=== PATIENT | male | born 1940 | race Caucasian/White ===

== ENCOUNTER → 2021-08-04 | Outpatient (CLI) | LOC: CVS 14:07 | PROVIDERS: ATTEND Internal Medicine | DX: D64.9 Anemia, unspecified (principal); D63.8 Anemia in other chronic diseases classified elsewhere | CPT/HCPCS: 82274 ==

== ENCOUNTER 2021-08-17 15:50 | Emergency (ER) | payer MEDICARE ==
--- NOTE | 2021-08-17 15:58 | ED General ---
General Stated Complaint: WEAKNESS Source of Information: Patient Exam Limitations: No Limitations History of Present Illness Date Seen by Provider: Aug 17, 2021 Time Seen by Provider: 15:56 Initial Comments To ER by EMS from [facility] where he resides with reports of general weakness nausea onset today. He received a booster vaccine for Covid yesterday. He had outpatient labs done at [facility] today at 2:20 PM showing a normal sodium potassium anion gap glucose. His creatinine was a little elevated at 1.6 his GFR a little low at 43. His baseline is about 50. Remainder of the chemistry panel is within normal limits. The CBC shows a hemoglobin of 8.4 which is stable for him, platelets of 120 which is also stable for him. Timing/Duration: 1 Day Severity: Moderate Associated Systoms: Nausea/Vomiting, Weakness Allergies and Home Medications Allergies Coded Allergies: No Known Drug Allergies (Unverified , 08/17/21) Patient Home Medication List Home Medication List Reviewed: Yes Cefuroxime Axetil (Cefuroxime) 250 Mg Tablet, 250 MG PO BID Prescribed by: SURESH CARTER on 08/17/211739 Review of Systems Review of Systems Constitutional: see HPI, weakness EENTM: see HPI Respiratory: no symptoms reported Cardiovascular: no symptoms reported Genitourinary: no symptoms reported Musculoskeletal: no symptoms reported Skin: no symptoms reported Psychiatric/Neurological: No Symptoms Reported Hematologic/Lymphatic: No Symptoms Reported Immunological/Allergic: no symptoms reported Physical Exam Vital Signs Vital Signs - First Documented Capillary Refill : Height, Weight, BMI Height: '" Weight: lbs. oz. kg; BMI Method: General Appearance: No Apparent Distress, WD/WN Eyes: Bilateral Eye Normal Inspection, Bilateral Eye PERRL, Bilateral Eye EOMI Neck: Full Range of Motion, Normal Inspection Respiratory: No Accessory Muscle Use, No Respiratory Distress Cardiovascular: Regular Rate, Rhythm, Normal Peripheral Pulses Gastrointestinal: Normal Bowel Sounds, Non Tender, Soft Extremity: Normal Capillary Refill, Normal Inspection Neurologic/Psychiatric: Alert, Disoriented (History of dementia) Skin: Normal Color, Warm/Dry Progress/Results/Core Measures Suspected Sepsis SIRS Temperature: Pulse: Respiratory Rate: Blood Pressure / Mean: Results/Orders Lab Results Laboratory Tests Test 08/17/21 15:55 08/17/21 17:05 Range/Units Magnesium Level 2.1 1.6-2.4 MG/DL Total Creatine Kinase 61 30-200 U/L Troponin I < 0.028 <0.028 NG/ML Urine Color YELLOW Urine Clarity SL CLOUDY Urine pH 6.0 5-9 Urine Specific [place] 1.025 H 1.016-1.022 Urine Protein TRACE H NEGATIVE Urine Glucose (UA) NEGATIVE NEGATIVE Urine Ketones NEGATIVE NEGATIVE Urine Nitrite POSITIVE H NEGATIVE Urine Bilirubin NEGATIVE NEGATIVE Urine Urobilinogen 0.2 < = 1.0 MG/DL Urine Leukocyte Esterase NEGATIVE NEGATIVE Urine RBC (Auto) 1+ H NEGATIVE Urine RBC RARE /HPF Urine WBC 0-2 /HPF Urine Crystals NONE /LPF Urine Bacteria LARGE H /HPF Urine Casts NONE /LPF Urine Mucus NEGATIVE /LPF Urine Culture Indicated YES My Orders Orders - SURESH CARTER APRN Ed Iv/Invasive Line Start (08/17/21 15:54) Ns Iv 500 Ml (Sodium Chloride 0.9%) (08/17/21 16:00) Ondansetron Injection (Zofran Injectio (08/17/21 16:00) Acetaminophen Tablet/Caplet (Tylenol T (08/17/21 16:00) Troponin I (08/17/21 15:58) Ekg Tracing (08/17/21 15:58) Creatine Kinase (08/17/21 15:58) Ua Culture If Indicated (08/17/21 16:11) Magnesium (08/17/21 17:00) Urine Culture (08/17/21 17:05) Ceftriaxone 1 Gm Pre-Mix (Rocephin 1 Gm (08/17/21 17:45) Medications Given in ED Current Medications Medications Dose Ordered Sig/Avel Route Start Time Stop Time Status Last Admin Dose Admin Acetaminophen 650 mg ONCE ONCE PO 08/17/21 16:00 08/17/21 16:01 DC 08/17/21 16:04 650 MG Ondansetron HCl 8 mg ONCE ONCE IVP 08/17/21 16:00 08/17/21 16:01 DC 08/17/21 16:04 8 MG Vital Signs/I&O 08/17/21 08/17/21 15:55 15:55 Temp 37.7 Pulse 64 Resp 18 B/P (MAP) 160/94 (116) Pulse Ox 97 O2 Delivery Room Air Room Air Capillary Refill : Departure Impression Primary Impression: UTI (urinary tract infection) 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 Decision time for Depature: 17:39 Referrals: DAMIÁN MAGANA MD (PCP/Family) Primary Care Physician Patient Instructions: Urinary Tract Infection, Adult ED Add. Discharge Instructions: 1. Antibiotic as directed. Return to ER for any concerns. Follow-up with his doctor next week. Scripts Cefuroxime Axetil (Cefuroxime) 250 Mg Tablet 250 MG PO BID, #14 TAB Prov: SURESH CARTER APRN 08/17/21 SURESH CARTER APRN Aug 17, 2021 15:58
[2021-08-17] MEDS ORDERED: ONDANSETRON 4 MG/2 ML (SDV) Z0FRAN IVP ONE (16:00)
[2021-08-17] MEDS ORDERED: NS IV 500 ML 500 ML IV SCH (16:00)
[2021-08-17] MEDS ORDERED: ACETAMINOPHEN 325 MG TABLET PO ONE (16:00)
[2021-08-17 16:21] LABS: CREATINE KINASE 61 U/L (30-200)
[2021-08-17 17:26] LABS: BILIRUBIN,URINE NEGATIVE (NEGATIVE); CLARITY,URINE SL CLOUDY; COLOR,URINE YELLOW; GLUCOSE, URINE (UA) NEGATIVE (NEGATIVE); KETONES,URINE NEGATIVE (NEGATIVE); LEUKOCYTE ESTERASE ,URINE NEGATIVE (NEGATIVE); NITRITE,URINE POSITIVE (NEGATIVE); PROTEIN,URINE TRACE (NEGATIVE)
[2021-08-17 17:36] LABS: BACTERIA,URINE LARGE /HPF; RBC,URINE RARE /HPF; WBC,URINE 0-2 /HPF
[2021-08-17] MEDS ORDERED: CEFU250T80 PO (17:40)
[2021-08-17] MEDS ORDERED: cefTRIAXone 1 GM PRE-MIX 50 ML IV ONE (17:45)
[2021-08-17 18:33] VITALS: BP 160/94
== END 2021-08-17 18:34 | disposition home or self-care (01) ==
LOC: EDUNIT# 15:50 → ER 15:53
DX: N39.0 Urinary tract infection, site not specified (principal); T88.1XXA Other complications following immunization, not elsewhere classified, initial encounter
CPT/HCPCS: 36415; 81000; 82550; 83735; 84484; 87077; 87088; 87186; 93005

== ENCOUNTER → 2021-09-04 | Outpatient (CLI) | payer MEDICARE ==
[~2021-09-04] MED LIST: CEFU250T80 PO
[2021-09-04 09:24] LABS: BASOPHILS % (AUTO) 1 % (0-10); EOSINOPHILS # (AUTO) 0.2 10^3/uL (0.0-0.3); EOSINOPHILS % (AUTO) 4 % (0-10); HEMATOCRIT 32 % (40-54); HEMOGLOBIN 9.9 g/dL (13.3-17.7); LYMPHOCYTES % (AUTO) 24 % (12-44); MEAN CORPUSCULAR HEMOGLOBIN 26 pg (25-34); MEAN CORPUSCULAR HGB CONC 31 g/dL (32-36); MEAN CORPUSCULAR VOLUME 86 fL (80-99); MEAN PLATELET VOLUME 10.2 fL (9.0-12.2); MONOCYTES # (AUTO) 0.3 10^3/uL (0.0-1.0); MONOCYTES % (AUTO) 6 % (0-12); NEUTROPHILS # (AUTO) 2.7 10^3/uL (1.8-7.8); NEUTROPHILS % (AUTO) 66 % (42-75); PLATELET COUNT 143 10^3/uL (130-400); WHITE BLOOD COUNT 4.2 10^3/uL (4.3-11.0)
[2021-09-04 09:46] LABS: ACANTHOCYTES MODERATE; ANISOCYTOSIS MODERATE; BAND NEUTROPHILS 0 %; BASOPHILS % (MANUAL) 1 %; EOSINOPHILS % (MANUAL) 2 %; LYMPHOCYTES % (MANUAL) 20 %; MONOCYTES % (MANUAL) 4 %; NEUTROPHILS % (MANUAL) 69 %; POIKILOCYTOSIS MODERATE
== END ==
LOC: LAB 09:01
PROVIDERS: ATTEND Internal Medicine
DX: Z01.89 Encounter for other specified special examinations (principal)
CPT/HCPCS: 36415; 85007; 85027

== ENCOUNTER 2021-09-12 11:23 | Outpatient (CLI) | payer MEDICARE ==
[~2021-09-12] VITALS: Ht 183 cm; Wt 77.7 kg
[2021-09-13] MEDS ORDERED: FERR325T24 PO (14:37)
[2021-09-13] MEDS ORDERED: ONDN4T PO (14:37)
[2021-09-13] MEDS ORDERED: POLY17PO6 PO ×2 (14:37)
[2021-09-13] MEDS ORDERED: ACHD5005 PO (14:37)
[2021-09-13] MEDS ORDERED: PANT40TA2 PO (14:37)
[2021-09-13] MEDS ORDERED: MEMA10TA2 PO (14:37)
[2021-09-13] MEDS ORDERED: DORZ10DR27 OP (14:37)
[2021-09-13] MEDS ORDERED: SUCR1TAB36 PO (14:37)
[2021-09-13] MEDS ORDERED: LORA10CA PO (14:37)
[2021-09-13] MEDS ORDERED: TRIA15CR TP (14:37)
[2021-09-13] MEDS ORDERED: CHOL100048 PO (14:37)
[2021-09-13] MEDS ORDERED: RIVA15TA PO (14:37)
[2021-09-13] MEDS ORDERED: LATA7.5D OP (14:37)
[2021-09-13] MEDS ORDERED: SERT100T PO (14:37)
== END 2021-09-13 14:56 ==
LOC: PREOP 11:23
PROVIDERS: ATTEND Internal Medicine
DX: Z01.818 Encounter for other preprocedural examination (principal)

== ENCOUNTER 2021-09-14 10:00 | Day surgery (SDC) | payer MEDICARE ==
--- NOTE | 2021-09-12 17:25 | HISTORY AND PHYSICAL ---
DATE OF SERVICE: EGD HISTORY AND PHYSICAL HISTORY: The patient is an 81-year-old white male referred by Dr. Lara for panendoscopy due to history of occult positive blood in the stool and anemia. The patient carries a diagnosis of vascular dementia as well and could give little history, was not sure why he was here. We received information from Dr. Lara's office with blood work including a chemistry panel and CBC from 08/17/2021. At that time, his hemoglobin was 8.4 with an MCV of 84. White count was slightly depressed at 3900, platelet count was slightly low at 120,000. He was occult positive and appeared to have stable stage III chronic renal disease with an estimated GFR of 43 and a creatinine of 1.4 with remainder of his chemistry panel being normal. From a history standpoint after noting some pain in the left upper quadrant to palpation and no obvious evidence for splenomegaly, the patient reports he has been having some left upper quadrant discomfort, but he is not sure for how long. He does not give history of melena or bright red blood per rectum, but his dementia history is suspect. He thinks that his clothes are fitting about the same, does not think that he has lost weight, but he is not sure. He is not aware of any past history for peptic ulcer disease, but he is on Xarelto. He does not remember whether or not he has ever had an EGD or colonoscopy in the past. Review of his electronic medical record, he has no history of GI tract procedures done at [facility]. He had recently been treated for urinary tract infection secondary to Escherichia coli, resistant to trimethoprim sulfa and only intermittently sensitive to cefazolin, but sensitive to all the other antibiotics with gram-negative coverage. In questioning, the patient does report his stools have been a little bit dark. PAST MEDICAL HISTORY: Vascular dementia. Significant for chronic atrial fibrillation and psoriasis. MEDICATIONS: Include Xarelto 20 mg daily, Claritin 10 mg daily, vitamin D 1000 units daily, p.r.n. MiraLax, Zoloft 100 mg daily. The patient does not recall any past surgeries. FAMILY HISTORY: The patient denies any family history for GI tract malignancy including colon cancer. PHYSICAL EXAMINATION: GENERAL: Reveals a thin, pleasant white male, who did not appear to be in acute distress, although he did appear pallorous. VITAL SIGNS: Blood pressure was 120/82. HEENT: Other than pallor unremarkable. Sclerae nonicteric. CHEST: Clear to auscultation. CARDIOVASCULAR: Reveals a regular rate and rhythm without murmur, S3 or S4. ABDOMEN: Soft, supple. There is some left upper quadrant discomfort to palpation without rebound or guarding. No mass or organomegaly is noted. EXTREMITIES: Reveal no cyanosis, clubbing or edema. ASSESSMENT AND PLAN: For further investigation of moderate anemia and otherwise mild pancytopenia with occult positive blood in the stool. The patient was advised to hold his Xarelto starting today. This notes were written out for the [facility] and we will plan on EGD evaluation first. If unremarkable, we will then bring the patient back for colonoscopy at a later date which maybe more difficult to achieve adequate prep due to underlying dementia. We will need to coordinate this with staff at [facility]. I thank you for the referral of this pleasant gentleman. Job ID: [id number] DocumentID: [id number] Dictated Date: 09/12/2021 17:00:02 Mangle Operator Garments Date: 09/12/2021 17:25:15 Dictated By: NELSON QUINTANA MD [facility]
[~2021-09-14] VITALS: Ht 183 cm; Wt 77.7 kg
[2021-09-14] VITALS (10 sets, daily range): BP systolic 133–188; BP diastolic 67–93
[~2021-09-14 10:00] MED LIST changes: +ACHD5005 PO; +CHOL100048 PO; +DORZ10DR27 OP; +FERR325T24 PO; +LATA7.5D OP; +LORA10CA PO; +MEMA10TA2 PO; +ONDN4T PO; +PANT40TA2 PO; +POLY17PO6 PO; +RIVA15TA PO; +SERT100T PO; +SUCR1TAB36 PO; +TRIA15CR TP
[2021-09-14] MEDS ORDERED: LACTATED RINGERS 1,000 ML IV STA (10:08)
[2021-09-14] MEDS ORDERED: LACTATED RINGERS 1,000 ML IV ONE (10:10)
[2021-09-14] MEDS ORDERED: LIDOCAINE JELLY 2% 6 ML SYRINGE MM PRN (10:15)
[2021-09-14] MEDS ORDERED: HURRICAINE EXT TUBE (BENZOCAINE) XX PRN (10:15)
[2021-09-14] MEDS ORDERED: D5 LR IV SOLUTION 1,000 ML IV SCH (10:30)
[2021-09-14] MEDS ORDERED: LACTATED RINGERS 1,000 ML IV SCH (11:00)
--- NOTE | 2021-09-14 11:24 | Pre-Op Note & Conscious Sedat ---
Pre-Operative Progress Note H&P Reviewed The H&P was reviewed, patient examined and no changes noted. Date H&P Reviewed: Sep 14, 2021 Time H&P Reviewed: 11:23 Conscious Sedation Pre-Proced ASA Score 2 For ASA 3 and 4: Consider anesthesia and medical clearance. Also, for patients with a history of failed moderate sedation consider anesthesia. Airway Lungs Heart ASA score ASA 1: a normal healthy patient ASA 2: a patient with a mild systemic disease (mid diabetes, controlled hypertension, obesity ASA 3: a patient with a severe systemic disease that limits activity (angina, COPD, prior Myocardial infarction) ASA 4: a patient with an incapacitating disease that is a constant threat to life (CHF, renal failure) ASA 5: a moribund patient not expected to survive 24 hrs. (ruptured aneurysm) ASA 6: a declared brain- patient whose organs are being harvested. For emergent operations, add the letter E after the classification Mallampati Classification Grade 1 Sedation Plan Analgesia, Amnesia, Plan communicated to team members, Discussed options with patient/fam, Discussed risks with patient/fam The patient is an appropriate candidate to undergo the planned procedure, sedation, and anesthesia. The patient immediately re-assessed prior to indication. NELSON QUINTANA MD Sep 14, 2021 11:23
[2021-09-14] MEDS ORDERED: MIDAZOLAM 2 MG/2 ML (VERSED) VIAL ONE (11:29)
[2021-09-14] MEDS ORDERED: PROPOFOL INJECTION 50 ML IV ONE (11:29)
--- NOTE | 2021-09-14 12:23 | Anesthesia-General Post-Op ---
MAC Patient Condition Mental Status/LOC: Same as Preop Cardiovascular: Satisfactory Nausea/Vomiting: Absent Respiratory: Satisfactory Pain: Controlled Complications: Absent Post Op Complications Complications None Follow Up Care/Instructions Patient Instructions None needed. Anesthesiology Discharge Order Discharge Order Patient is doing well, no complaints, stable vital signs, no apparent adverse anesthesia problems. No complications reported per nursing. ROBLES WASHINGTON CRNA Sep 14, 2021 12:23
--- NOTE | 2021-09-14 16:58 | OPERATIVE REPORT ---
DATE OF SERVICE: EGD SUMMARY EGD is performed for evaluation of anemia with occult positive blood in the stool. DESCRIPTION OF PROCEDURE: The patient was placed in the left lateral decubitus position. The endoscope was inserted in the oral cavity and under direct visualization, esophagus was intubated. Endoscope was passed down the esophagus through stomach and second portion of the duodenum. Careful inspection was made as the endoscope was withdrawn. FINDINGS: The posterior pharynx, arytenoid aperture, epiglottis and true and false vocal folds were unremarkable. The proximal and mid esophagus were unremarkable. There is some mild erythema without erosion or ulceration noted at the Z-line with no evidence to suggest Mensah's change. No strictures. The cardia, fundus, antrum, pylorus, pyloric channel, duodenal bulb and second portion of duodenum were unremarkable. There is no evidence to suggest hiatal hernia. There was some erythema noted at the Z-line without evidence for ulceration or erosion. No evidence for blood in the upper GI tract. Very questionable source for this patient's occult positive blood in the stool. We will discuss options considering advanced dementia and advanced age including colonoscopy with Dr. Lara before making more formal recommendations. I thank you for the referral of this pleasant gentleman. Job ID: [id number] DocumentID: [id number] Dictated Date: 09/14/2021 12:11:48 Caramel Cutter Hand Date: 09/14/2021 16:58:12 Dictated By: NELSON QUINTANA MD [facility]
== END 2021-09-14 12:50 | disposition home or self-care (01) ==
LOC: ENDO 10:00
PROVIDERS: ATTEND Internal Medicine
DX: R19.5 Other fecal abnormalities (principal); D64.9 Anemia, unspecified; I25.10 Atherosclerotic heart disease of native coronary artery without angina pectoris; D61.818 Other pancytopenia; I48.91 Unspecified atrial fibrillation; K21.9 Gastro-esophageal reflux disease without esophagitis; F32.A Depression, unspecified; Z79.899 Other long term (current) drug therapy; Z95.1 Presence of aortocoronary bypass graft

== ENCOUNTER 2021-12-12 20:16 | Emergency (ER) | payer MEDICARE ==
[~2021-12-12] VITALS: Ht 191 cm; Wt 77.5 kg
[2021-12-12 20:30] VITALS: BP 202/119
--- NOTE | 2021-12-12 20:52 | ED General ---
General Chief Complaint: Altered Mental Status Stated Complaint: AMS Source of Information: Other (daughter) Exam Limitations: Other (mental capacity) (JONATHAN GARCIA MED STUDENT) History of Present Illness Date Seen by Provider: Dec 12, 2021 Time Seen by Provider: 20:38 Initial Comments Patient is an 81 year old male with pmh significant for dementia, major depressive disorder, and chronic atrial fibrillation who presents to the ED with his daughter from via [facility] assisted living with complaints of acutely worsening confusion x 4 days. Daughter reports that patient has been acting more confused than his baseline, especially over the last 24 hours. Reports he's not recognizing people he normally does and has been somewhat combative/agitated according to the staff at assisted living. Has been eating and drinking normally. Voiding and stooling normally per daughters report. No recent sick contact. No known falls, fevers/chills, cough, or chest pain reports from patient according to daughter. He is covid vaccinated and boosted per daughter. Patient is altered and unable to contribute history during exam. Timing/Duration: 3-4 Days Severity: Mild, Moderate Associated Systoms: Denies Symptoms; No Chest Pain, No Cough, No Fever/Chills, No Loss of Appetite, No Rash (JONATHAN GARCIA MED STUDENT) Initial Comments 81 yo male with a history of dementia, depression - recently started on Rexulti within the last week, progressive behavior change and worsening aggression over the last week as well, specifically worse the last 24 hours. Dose was increased to 1mg this morning, Daughter (who is with him - geochemist in [place]) states that he has been entering other people's rooms in the senior care, climbing into bed with other occupants, belligerent and aggressive with staff and that is not like him at all. He is normally alert and oriented to self and family members, not date/time. And even that is worse the last 24hours. On chronic anticoagulation for afib. No reported falls/head trauma. No fevers. eating and drinking ok. Has had a UTI in the past. He cannot really contribute to HPI, ROS/history due to his dementia currently. (RAUL GARCIA MD) Allergies and Home Medications Allergies Coded Allergies: No Known Drug Allergies (Unverified , 08/17/21) Patient Home Medication List Home Medication List Reviewed: Yes (RAUL GARCIA MD) Cholecalciferol (Vitamin D3) (Vitamin D3) 25 Mcg Capsule, 25 MCG PO DAILY, (Reported) Entered as Reported by: SAADIA TIWARI on 09/13/211436 Dorzolamide HCl/Pf (Dorzolamide 2% Eye Drop) 10 Ml Drops, 1 DROP OP DAILY, (Reported) Entered as Reported by: SAADIA TIWARI on 09/13/211436 Ferrous Sulfate (Ferosul) 325 Mg Tablet, 325 MG PO BID, (Reported) Entered as Reported by: SAADIA TIWARI on 09/13/211436 Hydrocodone Bit/Acetaminophen (HYDROcodone/APAP 5 MG/325 MG TAB) 1 Tab Tab, 0.5 TAB PO Q6H PRN for PAIN-SEE DOSE INSTRUCTIONS, (Reported) Entered as Reported by: SAADIA TIWARI on 09/13/211436 Latanoprost/Pf (Latanoprost 0.005% Eye Drop) 7.5 Ml Drops, 1 DROP OP HS, (Reported) Entered as Reported by: SAADIA TIWARI on 09/13/211436 Loratadine (Claritin) 10 Mg Capsule, 10 MG PO DAILY, (Reported) Entered as Reported by: SAADIA TIWARI on 09/13/211436 Memantine HCl (Namenda) 10 Mg Tablet, 10 MG PO BID, (Reported) Entered as Reported by: SAADIA TIWARI on 09/13/211436 Ondansetron HCl (Zofran) 4 Mg Tab, 4 MG PO Q6H PRN for NAUSEA/VOMITING, (Reported) Entered as Reported by: SAADIA TIWARI on 09/13/211436 Pantoprazole Sodium (Protonix) 40 Mg Tablet.dr, 40 MG PO DAILY, (Reported) Entered as Reported by: SAADIA TIWARI on 09/13/211436 Polyethylene Glycol 3350 (Miralax) 17 Gm Powd.pack, 17 GM PO DAILY, (Reported) Entered as Reported by: SAADIA TIWARI on 09/13/211436 Polyethylene Glycol 3350 (Miralax) 17 Gm Powd.pack, 17 GM PO PRN, (Reported) Entered as Reported by: SAADIA TIWARI on 09/13/211436 Rivaroxaban (Xarelto) 15 Mg Tablet, 15 MG PO DAILY, (Reported) Entered as Reported by: SAADIA TIWARI on 09/13/211436 Sertraline HCl (Zoloft) 100 Mg Tablet, 100 MG PO HS, (Reported) Entered as Reported by: SAADIA TIWARI on 09/13/211436 Triamcinolone Acetonide (Triamcinolone Acetonide 0.5% Cream) 15 Gm Cream..g., 15 GM TP BID, (Reported) Entered as Reported by: SAADIA TIWARI on 09/13/211436 Review of Systems Review of Systems Constitutional: no symptoms reported; No chills, No fever EENTM: see HPI; No blurred vision, No double vision Respiratory: no symptoms reported; No cough, No short of breath Cardiovascular: no symptoms reported; No chest pain, No palpitations Gastrointestinal: No abdominal pain, No diarrhea, No vomiting Genitourinary: no symptoms reported; No discharge, No dysuria Musculoskeletal: no symptoms reported; No back pain, No joint pain Skin: no symptoms reported; No change in color, No change in hair/nails Psychiatric/Neurological: Depressed; Denies Headache, Denies Weakness Hematologic/Lymphatic: Easy Bleeding, Easy Bruising Immunological/Allergic: no symptoms reported (JONATHAN GARCIA [employer] STUDENT) Past Cjddagg-Guxbbm-Fihugy Hx Patient Social History Tobacco Use?: No Smoking Status: Former Smoker (quit in 1979 20 pack year history) Smokeless Tobacco Frequency: Never a User Use of E-Cig and/or Vaping dev: No Use of E-Cig and/or Vaping Сергей: Never a User Substance use?: No Substance frequency: Rarely Alcohol Use?: No (JONATHAN GARCIA [employer] STUDENT) Immunizations Up To Date Tetanus Booster (TDap): Unknown Influenza Vaccine Up-to-Date: Yes; Up-to-Date First/Initial COVID19 Vaccinat: YES Second COVID19 Vaccination Josh: YES Third COVID19 Vaccination Date: YES (JONATHAN GARCIA [employer] STUDENT) Seasonal Allergies Seasonal Allergies: Yes (JONATHAN GARCIA [employer] RADHA) Past Medical History Surgeries: No (UNSURE) Respiratory: No Cardiac: Yes Atrial Fibrillation Neurological: Yes Dementia Genitourinary: No Musculoskeletal: No Endocrine: No HEENT: No Cancer: No Psychosocial: Yes Depression Integumentary: Yes Psoriasis Blood Disorders: Yes (ANEMIA) (JONATHAN GARCIA [employer] STUDENT) Physical Exam Vital Signs Vital Signs - First Documented 12/12/21 20:30 Temp 36.5 Pulse 75 Resp 20 B/P (MAP) 202/119 (146) Pulse Ox 99 O2 Delivery Room Air (RAUL GARCIA MD) Vital Signs Capillary Refill : (JONATHAN GARCIA [employer] STUDENT) Height, Weight, BMI Height: '" Weight: lbs. oz. kg; 23.20 BMI Method: General Appearance: No Apparent Distress, WD/WN Eyes: Bilateral Eye Normal Inspection, Bilateral Eye PERRL, Bilateral Eye EOMI HEENT: PERRL/EOMI, Moist Mucous Membranes Neck: Full Range of Motion, Non Tender Respiratory: Lungs Clear, Normal Breath Sounds, No Accessory Muscle Use Cardiovascular: Normal Peripheral Pulses, Irregularly Irregular Gastrointestinal: Normal Bowel Sounds, Soft; No Distended Rectal: Deferred Back: Normal Inspection, No Vertebral Tenderness Extremity: Normal Capillary Refill, Non Tender, No Calf Tenderness, Other (nonpitting edema BLE) Neurologic/Psychiatric: Alert, Disoriented (to person, place, time, and situation) Skin: Normal Color, Warm/Dry, Ecchymosis (left hand dorsal aspect) Lymphatic: No Adenopathy (Head and Neck) (JONATHAN GARCIA [employer] STUDENT) General Appearance: No Apparent Distress, WD/WN HEENT: PERRL/EOMI Neck: Normal Inspection Respiratory: Lungs Clear, Normal Breath Sounds, No Accessory Muscle Use Cardiovascular: Normal Peripheral Pulses, Irregularly Irregular Gastrointestinal: Non Tender, Soft Extremity: Normal Capillary Refill, Non Tender, No Calf Tenderness, No Pedal Edema Neurologic/Psychiatric: Alert, Disoriented (to person, place, time, and situation), Other (pleasant affect. smiles. agreeable. not aggressive currently.) Skin: Normal Color, Warm/Dry, Other (no signs of trauma noted) (RAUL GARCIA MD) Progress/Results/Core Measures Suspected Sepsis SIRS Temperature: Pulse: Respiratory Rate: Blood Pressure / Mean: (JONATHAN GARCIA [employer] STUDENT) Results/Orders Lab Results Laboratory Tests Test 12/12/21 20:55 12/12/21 22:11 Range/Units White Blood Count 4.3 4.3-11.0 10^3/uL Red Blood Count 3.49 L 4.30-5.52 10^6/uL Hemoglobin 9.9 L 13.3-17.7 g/dL Hematocrit 31 L 40-54 % Mean Corpuscular Volume 89 80-99 fL Mean Corpuscular Hemoglobin 28 25-34 pg Mean Corpuscular Hemoglobin Concent 32 32-36 g/dL Red Cell Distribution Width 15.5 H 10.0-14.5 % Platelet Count 105 L 130-400 10^3/uL Mean Platelet Volume 11.1 9.0-12.2 fL Immature Granulocyte % (Auto) 0 % Neutrophils (%) (Auto) 65 42-75 % Lymphocytes (%) (Auto) 21 12-44 % Monocytes (%) (Auto) 9 0-12 % Eosinophils (%) (Auto) 3 0-10 % Basophils (%) (Auto) 1 0-10 % Neutrophils # (Auto) 2.8 1.8-7.8 10^3/uL Lymphocytes # (Auto) 0.9 L 1.0-4.0 10^3/uL Monocytes # (Auto) 0.4 0.0-1.0 10^3/uL Eosinophils # (Auto) 0.1 0.0-0.3 10^3/uL Basophils # (Auto) 0.0 0.0-0.1 10^3/uL Immature Granulocyte # (Auto) 0.0 0.0-0.1 10^3/uL Percent Immature Platelet Fraction 3.1 0.0-7.6 % Sodium Level 140 135-145 MMOL/L Potassium Level 3.7 3.6-5.0 MMOL/L Chloride Level 106 98-107 MMOL/L Carbon Dioxide Level 22 21-32 MMOL/L Anion Gap 12 5-14 MMOL/L Blood Urea Nitrogen 20 H 7-18 MG/DL Creatinine 1.57 H 0.60-1.30 MG/DL Estimat Glomerular Filtration Rate 44 BUN/Creatinine Ratio 13 Glucose Level 88 70-105 MG/DL Calcium Level 9.4 8.5-10.1 MG/DL Corrected Calcium 9.5 8.5-10.1 MG/DL Total Bilirubin 0.7 0.1-1.0 MG/DL Aspartate Amino Transf (AST/SGOT) 14 5-34 U/L Alanine Aminotransferase (ALT/SGPT) 8 0-55 U/L Alkaline Phosphatase 45 40-136 U/L Total Protein 6.7 6.4-8.2 GM/DL Albumin 3.9 3.2-4.5 GM/DL Urine Color YELLOW Urine Clarity CLEAR Urine pH 6.0 5-9 Urine Specific [place] >=1.030 1.016-1.022 Urine Protein TRACE H NEGATIVE Urine Glucose (UA) NEGATIVE NEGATIVE Urine Ketones NEGATIVE NEGATIVE Urine Nitrite NEGATIVE NEGATIVE Urine Bilirubin NEGATIVE NEGATIVE Urine Urobilinogen 1.0 < = 1.0 MG/DL Urine Leukocyte Esterase NEGATIVE NEGATIVE Urine RBC (Auto) NEGATIVE NEGATIVE Urine RBC NONE /HPF Urine WBC NONE /HPF Urine Squamous Epithelial Cells RARE /HPF Urine Crystals NONE /LPF Urine Bacteria NEGATIVE /HPF Urine Casts NONE /LPF Urine Mucus SMALL H /LPF Urine Culture Indicated NO (RAUL GARCIA MD) My Orders Orders - RAUL GARCIA MD Ed Iv/Invasive Line Start (12/12/21 21:01) Cbc With Automated Diff (12/12/21 21:01) Comprehensive Metabolic Panel (12/12/21 21:01) Ua Culture If Indicated (12/12/21 21:01) Ct Head Wo (12/12/21 21:01) (RAUL GARCIA MD) Vital Signs/I&O 12/12/21 20:30 Temp 36.5 Pulse 75 Resp 20 B/P (MAP) 202/119 (146) Pulse Ox 99 O2 Delivery Room Air (RAUL GARCIA MD) Vital Signs/I&O Capillary Refill : (JONATHAN GARCIA MED STUDENT) Progress Note : Time: 22:06 Progress Note Labs reviewed and Hgb is 9 - stable currently. Creat is up at 1.5 with no priors in the record. i made the daughter aware. CT head is unremarkable for anything acute. He's a little hypertensive with no focal neuro findings. Trying to obtain a urine - but per the daughter, if we are unsuccessful, she will have the senior care obtain one in the next few days. We have decided to stop the Rexulti as this seems to be the only thing recently that may be causing his increasingly abnormal behaviors and confusion. I will write a note to the senior care not to give the am dose tomorrow and send his chart to Dr Magana's office and his daughter will contact them tomorrow as well. Return precautions discussed. (RAUL GARCIA MD) Diagnostic Imaging Diagonstic Imaging: CT Plain Films/CT/US/NM/MRI: head Comments [facility], [place] NAME: CELSA ARANA [facility] REC#: [id number] PT STATUS: REG ER : 1940 PHYSICIAN: RAUL GARCIA MD ADMIT DATE: 12/12/21/ER Draft Date of Exam:12/12/21 CT HEAD WO INDICATION: Altered mental status TECHNIQUE: Routine non contrast-enhanced axial images were obtained from the skull base to the vertex. Auto Exposure Controls were utilized during the CT exam to meet ALARA standards for radiation dose reduction COMPARISON: None. FINDINGS: The ventricles and cortical sulci are diffusely prominent, compatible with age-related volume loss. There are confluent areas of abnormal, low attenuation in the periventricular white matter. This is consistent with small vessel ischemic changes; age-indeterminate. There is no prior study available for comparison. There is no midline shift or mass-effect. No acute intra-axial hemorrhage is seen. There are no abnormal areas of increased or decreased density to suggest acute hemorrhage or edema. No extra-axial masses or collections are present. The bony calvarium is intact. The visualized paranasal sinuses are unremarkable. The mastoid air cells are clear. IMPRESSION: 1. No acute intracranial abnormality. No CT evidence of mass, acute infarct or intracranial hemorrhage. 2. Small vessel ischemic changes in the periventricular and subcortical white matter; likely chronic. Dictated on workstation # [id number] Dict: 12/12/212142 Trans: 12/12/212144 [facility] [id number] Interpreted by: ROYAL HOLT MD Electronically signed by: (RAUL GARCIA MD) Departure Impression Primary Impression: Dementia Qualified Codes: F03.91 - Unspecified dementia with behavioral disturbance Additional Impression: Medication side effect Disposition: 01 HOME, SELF-CARE Condition: Stable Departure-Patient Inst. Decision time for Depature: 22:09 (RAUL GARCIA MD) Referrals: DAMIÁN MAGANA MD (PCP/Family) Primary Care Physician Patient Instructions: Dementia ED Add. Discharge Instructions: Continue routine daily medications but DISCONTINUE REXULTI. Daughter will touch base with Dr Magana's office tomorrow to discuss other medication options. Return for worsening behavior changes especially with fever, vomiting, chest pain, falls or other significant symptoms. Copy Copies To 1: DAMIÁN MAGANA MD, [employer] MED STUDENT Dec 12, 2021 20:52 RAUL GARCIA MD Dec 12, 2021 22:08
[2021-12-12 21:07] LABS: NEUTROPHILS # (AUTO) 2.8 10^3/uL (1.8-7.8)
[2021-12-12 21:09] LABS: BASOPHILS % (AUTO) 1 % (0-10); EOSINOPHILS # (AUTO) 0.1 10^3/uL (0.0-0.3); EOSINOPHILS % (AUTO) 3 % (0-10); HEMATOCRIT 31 % (40-54); HEMOGLOBIN 9.9 g/dL (13.3-17.7); LYMPHOCYTES # (AUTO) 0.9 10^3/uL (1.0-4.0); LYMPHOCYTES % (AUTO) 21 % (12-44); MEAN CORPUSCULAR HEMOGLOBIN 28 pg (25-34); MEAN CORPUSCULAR HGB CONC 32 g/dL (32-36); MEAN CORPUSCULAR VOLUME 89 fL (80-99); MEAN PLATELET VOLUME 11.1 fL (9.0-12.2); MONOCYTES # (AUTO) 0.4 10^3/uL (0.0-1.0); MONOCYTES % (AUTO) 9 % (0-12); NEUTROPHILS % (AUTO) 65 % (42-75); PLATELET COUNT 105 10^3/uL (130-400); WHITE BLOOD COUNT 4.3 10^3/uL (4.3-11.0)
[2021-12-12 21:12] LABS: ALBUMIN 3.9 GM/DL (3.2-4.5)
[2021-12-12 21:13] LABS: POTASSIUM 3.7 MMOL/L (3.6-5.0)
[2021-12-12 21:14] LABS: CALCIUM 9.4 MG/DL (8.5-10.1)
[2021-12-12 21:15] LABS: TOTAL PROTEIN 6.7 GM/DL (6.4-8.2)
[2021-12-12 21:17] LABS: BILIRUBIN,TOTAL 0.7 MG/DL (0.1-1.0)
[2021-12-12 21:18] LABS: CREATININE SERUM 1.57 MG/DL (0.60-1.30)
--- NOTE | 2021-12-12 21:45 | Diagnostic Imaging Report ---
INDICATION: Altered mental status TECHNIQUE: Routine non contrast-enhanced axial images were obtained from the skull base to the vertex. Auto Exposure Controls were utilized during the CT exam to meet ALARA standards for radiation dose reduction COMPARISON: None. FINDINGS: The ventricles and cortical sulci are diffusely prominent, compatible with age-related volume loss. There are confluent areas of abnormal, low attenuation in the periventricular white matter. This is consistent with small vessel ischemic changes; age-indeterminate. There is no prior study available for comparison. There is no midline shift or mass-effect. No acute intra-axial hemorrhage is seen. There are no abnormal areas of increased or decreased density to suggest acute hemorrhage or edema. No extra-axial masses or collections are present. The bony calvarium is intact. The visualized paranasal sinuses are unremarkable. The mastoid air cells are clear. IMPRESSION: 1. No acute intracranial abnormality. No CT evidence of mass, acute infarct or intracranial hemorrhage. 2. Small vessel ischemic changes in the periventricular and subcortical white matter; likely chronic. Dictated by: Dictated on workstation # [id number]
[2021-12-12 22:17] LABS: BILIRUBIN,URINE NEGATIVE (NEGATIVE); CLARITY,URINE CLEAR; COLOR,URINE YELLOW; GLUCOSE, URINE (UA) NEGATIVE (NEGATIVE); KETONES,URINE NEGATIVE (NEGATIVE); LEUKOCYTE ESTERASE ,URINE NEGATIVE (NEGATIVE); NITRITE,URINE NEGATIVE (NEGATIVE); PROTEIN,URINE TRACE (NEGATIVE)
[2021-12-12 22:23] LABS: BACTERIA,URINE NEGATIVE /HPF; SQUAMOUS EPITHELIAL CELL,UR RARE /HPF
== END 2021-12-12 22:43 | disposition home or self-care (01) ==
LOC: EDUNIT# 20:16 → ER 20:18
DX: F03.90 Unspecified dementia, unspecified severity, without behavioral disturbance, psychotic disturbance, mood disturbance, and anxiety (principal); T50.905A Adverse effect of unspecified drugs, medicaments and biological substances, initial encounter; Z87.891 Personal history of nicotine dependence
CPT/HCPCS: 36415; 70450; 80053; 81000; 85025

== ENCOUNTER 2021-12-21 15:14 | Inpatient (IN) | payer MEDICARE ==
[~2021-12-21] VITALS: Ht 193 cm; Wt 73.2 kg
--- NOTE | 2021-12-21 15:25 | ED General ---
General Stated Complaint: FALL Source of Information: Patient, EMS Exam Limitations: No Limitations History of Present Illness Date Seen by Provider: Dec 21, 2021 Time Seen by Provider: 15:22 Initial Comments To ER from assisted living side of [facility] with reports of an unwitnessed fall. He has dementia. There was concern of right hip fracture given his complaint of right thigh pain. His daughter Twila who is a organic lab worker in [place] is at the bedside. Timing/Duration: 1-2 Days Severity: Moderate Associated Systoms: Denies Symptoms Allergies and Home Medications Allergies Coded Allergies: No Known Drug Allergies (Unverified , 08/17/21) Patient Home Medication List Home Medication List Reviewed: Yes Cholecalciferol (Vitamin D3) (Vitamin D3) 25 Mcg Capsule, 25 MCG PO DAILY, (Reported) Entered as Reported by: SAADIA TIWARI on 09/13/211436 Dorzolamide HCl/Pf (Dorzolamide 2% Eye Drop) 10 Ml Drops, 1 DROP OP DAILY, (Reported) Entered as Reported by: SAADIA TIWARI on 09/13/211436 Ferrous Sulfate (Ferosul) 325 Mg Tablet, 325 MG PO BID, (Reported) Entered as Reported by: SAADIA TIWARI on 09/13/211436 Hydrocodone Bit/Acetaminophen (HYDROcodone/APAP 5 MG/325 MG TAB) 1 Tab Tab, 0.5 TAB PO Q6H PRN for PAIN-SEE DOSE INSTRUCTIONS, (Reported) Entered as Reported by: SAADIA TIWARI on 09/13/211436 Latanoprost/Pf (Latanoprost 0.005% Eye Drop) 7.5 Ml Drops, 1 DROP OP HS, (Reported) Entered as Reported by: SAADIA TIWARI on 09/13/211436 Loratadine (Claritin) 10 Mg Capsule, 10 MG PO DAILY, (Reported) Entered as Reported by: SAADIA TIWARI on 09/13/211436 Memantine HCl (Namenda) 10 Mg Tablet, 10 MG PO BID, (Reported) Entered as Reported by: SAADIA TIWARI on 09/13/211436 Ondansetron HCl (Zofran) 4 Mg Tab, 4 MG PO Q6H PRN for NAUSEA/VOMITING, (Reported) Entered as Reported by: SAADIA TIWARI on 09/13/211436 Pantoprazole Sodium (Protonix) 40 Mg Tablet.dr, 40 MG PO DAILY, (Reported) Entered as Reported by: SAADIA TIWARI on 09/13/211436 Polyethylene Glycol 3350 (Miralax) 17 Gm Powd.pack, 17 GM PO DAILY, (Reported) Entered as Reported by: SAADIA TIWARI on 09/13/211436 Polyethylene Glycol 3350 (Miralax) 17 Gm Powd.pack, 17 GM PO PRN, (Reported) Entered as Reported by: SAADIA TIWARI on 09/13/211436 Rivaroxaban (Xarelto) 15 Mg Tablet, 15 MG PO DAILY, (Reported) Entered as Reported by: SAADIA TIWARI on 09/13/211436 Sertraline HCl (Zoloft) 100 Mg Tablet, 100 MG PO HS, (Reported) Entered as Reported by: SAADIA TIWARI on 09/13/211436 Triamcinolone Acetonide (Triamcinolone Acetonide 0.5% Cream) 15 Gm Cream..g., 15 GM TP BID, (Reported) Entered as Reported by: SAADIA TIWARI on 09/13/211436 Review of Systems Review of Systems Constitutional: see HPI EENTM: see HPI Respiratory: no symptoms reported Cardiovascular: no symptoms reported Genitourinary: no symptoms reported Musculoskeletal: no symptoms reported Skin: no symptoms reported Psychiatric/Neurological: No Symptoms Reported Hematologic/Lymphatic: No Symptoms Reported Immunological/Allergic: no symptoms reported Past Dyofvqb-Nozanr-Ykgivz Hx Immunizations Up To Date Tetanus Booster (TDap): Unknown First/Initial COVID19 Vaccinat: 01/17 Second COVID19 Vaccination Josh: 02/16 Third COVID19 Vaccination Date: YES Seasonal Allergies Seasonal Allergies: Yes Past Medical History Surgeries: No (UNSURE) Respiratory: No Cardiac: Yes Atrial Fibrillation Neurological: Yes Dementia Genitourinary: No Musculoskeletal: No Endocrine: No HEENT: No Cancer: No Psychosocial: Yes Depression Integumentary: Yes Psoriasis Blood Disorders: Yes (ANEMIA) Physical Exam Vital Signs Vital Signs - First Documented 12/21/21 15:15 Temp 36.4 Pulse 57 Resp 18 B/P (MAP) 157/95 (115) Pulse Ox 95 O2 Delivery Room Air Capillary Refill : Height, Weight, BMI Height: '" Weight: lbs. oz. kg; 21.00 BMI Method: General Appearance: No Apparent Distress, WD/WN Eyes: Bilateral Eye Normal Inspection, Bilateral Eye PERRL, Bilateral Eye EOMI, Bilateral Eye Other (No sign of a head injury such as hematoma or abrasion of the scalp.) Neck: Full Range of Motion, Normal Inspection Respiratory: Normal Breath Sounds, No Accessory Muscle Use, No Respiratory Distress Cardiovascular: Regular Rate, Rhythm, Normal Peripheral Pulses Gastrointestinal: Normal Bowel Sounds, Non Tender, Soft Extremity: Normal Capillary Refill, Normal Inspection, Other (minimal pain in right hip with passive ROM. ) Neurologic/Psychiatric: Alert Skin: Normal Color, Warm/Dry Progress/Results/Core Measures Suspected Sepsis SIRS Temperature: Pulse: Respiratory Rate: Laboratory Tests 12/21/21 16:50: White Blood Count 3.8L Blood Pressure / Mean: Laboratory Tests 12/21/21 16:50: Creatinine 1.44H, INR Comment 2.1H, Platelet Count 101L, Total Bilirubin 0.7 Results/Orders Lab Results Laboratory Tests Test 12/21/21 16:45 12/21/21 16:50 Range/Units Urine Color YELLOW Urine Clarity CLEAR Urine pH 6.0 5-9 Urine Specific [place] 1.020 1.016-1.022 Urine Protein NEGATIVE NEGATIVE Urine Glucose (UA) NEGATIVE NEGATIVE Urine Ketones NEGATIVE NEGATIVE Urine Nitrite NEGATIVE NEGATIVE Urine Bilirubin NEGATIVE NEGATIVE Urine Urobilinogen 1.0 < = 1.0 MG/DL Urine Leukocyte Esterase NEGATIVE NEGATIVE Urine RBC (Auto) TRACE-I H NEGATIVE Urine RBC 0-2 /HPF Urine WBC NONE /HPF Urine Squamous Epithelial Cells NONE /HPF Urine Crystals NONE /LPF Urine Bacteria NEGATIVE /HPF Urine Casts NONE /LPF Urine Mucus NEGATIVE /LPF Urine Culture Indicated NO White Blood Count 3.8 L 4.3-11.0 10^3/uL Red Blood Count 3.46 L 4.30-5.52 10^6/uL Hemoglobin 9.9 L 13.3-17.7 g/dL Hematocrit 31 L 40-54 % Mean Corpuscular Volume 89 80-99 fL Mean Corpuscular Hemoglobin 29 25-34 pg Mean Corpuscular Hemoglobin Concent 32 32-36 g/dL Red Cell Distribution Width 15.6 H 10.0-14.5 % Platelet Count 101 L 130-400 10^3/uL Mean Platelet Volume 10.3 9.0-12.2 fL Immature Granulocyte % (Auto) 1 % Neutrophils (%) (Auto) 77 H 42-75 % Lymphocytes (%) (Auto) 15 12-44 % Monocytes (%) (Auto) 5 0-12 % Eosinophils (%) (Auto) 2 0-10 % Basophils (%) (Auto) 0 0-10 % Neutrophils # (Auto) 2.9 1.8-7.8 10^3/uL Lymphocytes # (Auto) 0.6 L 1.0-4.0 10^3/uL Monocytes # (Auto) 0.2 0.0-1.0 10^3/uL Eosinophils # (Auto) 0.1 0.0-0.3 10^3/uL Basophils # (Auto) 0.0 0.0-0.1 10^3/uL Immature Granulocyte # (Auto) 0.0 0.0-0.1 10^3/uL Percent Immature Platelet Fraction 3.3 0.0-7.6 % Prothrombin Time 23.9 H 12.2-14.7 SEC INR Comment 2.1 H 0.8-1.4 Sodium Level 139 135-145 MMOL/L Potassium Level 4.0 3.6-5.0 MMOL/L Chloride Level 107 98-107 MMOL/L Carbon Dioxide Level 23 21-32 MMOL/L Anion Gap 9 5-14 MMOL/L Blood Urea Nitrogen 17 7-18 MG/DL Creatinine 1.44 H 0.60-1.30 MG/DL Estimat Glomerular Filtration Rate 49 BUN/Creatinine Ratio 12 Glucose Level 95 70-105 MG/DL Calcium Level 9.1 8.5-10.1 MG/DL Corrected Calcium 9.3 8.5-10.1 MG/DL Total Bilirubin 0.7 0.1-1.0 MG/DL Aspartate Amino Transf (AST/SGOT) 14 5-34 U/L Alanine Aminotransferase (ALT/SGPT) 12 0-55 U/L Alkaline Phosphatase 43 40-136 U/L Total Protein 6.6 6.4-8.2 GM/DL Albumin 3.8 3.2-4.5 GM/DL My Orders Orders - SURESH CARTER APRN Ct Head/Cervical Spine Wo (12/21/21 15:21) Pelvis With Right Hip 2-3views (12/21/21 15:21) Knee, Right, 3 Views (12/21/21 15:21) Cbc With Automated Diff (12/21/21 16:00) Comprehensive Metabolic Panel (12/21/21 16:00) Ua Culture If Indicated (12/21/21 16:00) Protime With Inr (12/21/21 16:00) Ed Iv/Invasive Line Start (12/21/21 16:00) Graham Cath (12/21/21 16:32) Lidocaine 2% (Urojet) (Xylocaine Urojet) (12/21/21 16:45) Medications Given in ED Current Medications Medications Dose Ordered Sig/Avel Route Start Time Stop Time Status Last Admin Dose Admin Lidocaine HCl 10 ml ONCE ONCE TOP 12/21/21 16:45 12/21/21 16:46 DC 12/21/21 16:45 10 ML Vital Signs/I&O 12/21/21 15:15 Temp 36.4 Pulse 57 Resp 18 B/P (MAP) 157/95 (115) Pulse Ox 95 O2 Delivery Room Air Capillary Refill : Departure Communication (Admissions) [id number] spoke with Dr. Martin we will admit for surgery. 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 He is got vascular dementia and atrial fibrillation for which he is on Xarelto so we will consult hospitalist.. NAME: SUMITCELSA Anmol MED REC#: [id number] PT STATUS: REG ER : 1940 PHYSICIAN: SURESH CARTER APRN ADMIT DATE: 12/21/21/ER Draft Date of Exam:12/21/21 PELVIS WITH RIGHT HIP 2-3VIEWS INDICATION: Fall and pelvic pain. TIME OF EXAM: 3:42 PM. AP view of the pelvis and two views of right hip were obtained. There is a subcapital right hip fracture. Femoral acetabular alignment is normal without evidence of dislocation. Rami appear intact. Left hip appears intact. IMPRESSION: Subcapital right hip fracture. Dictated on workstation # [id number] Dict: 12/21/21 1550 Trans: 12/21/21 1555 [facility] [id number] Interpreted by: TERELL IGNACIO MD Electronically signed by: NAME: CELSA ARANA MED REC#: [id number] PT STATUS: REG ER : 1940 PHYSICIAN: SURESH CARTER APRN ADMIT DATE: 12/21/21/ER Signed Date of Exam:12/21/21 KNEE, RIGHT, 3 VIEWS INDICATION: Fall and right knee pain. TIME OF EXAM: 3:37 PM. There is general demineralization. Joint spaces are well maintained. Articular surfaces are smooth. No fracture, dislocation or effusion is detected. IMPRESSION: Demineralization. No acute bony abnormality is detected. Dictated by: Dictated on workstation # [id number] Dict: 12/21/21 1549 Trans: 12/21/21 1557 [facility] [id number] Interpreted by: TERELL IGNACIO MD Electronically signed by: TERELL IGNACIO MD 12/21/21 1557 Impression Primary Impression: Hip fracture, right Additional Impressions: Unwitnessed fall Dementia Disposition: ADMITTED INPATIENT Condition: Stable Admissions Decision to Admit Reason: Admit from ER (General) Decision to Admit/Date: Dec 21, 2021 Time/Decision to Admit Time: 16:00 Departure-Patient Inst. Referrals: DAMIÁN MAGANA MD (PCP/Family) Primary Care Physician SURESH CARTER APRN Dec 21, 2021 15:25
--- NOTE | 2021-12-21 15:55 | Diagnostic Imaging Report ---
INDICATION: Fall and right knee pain. TIME OF EXAM: 3:37 PM. There is general demineralization. Joint spaces are well maintained. Articular surfaces are smooth. No fracture, dislocation or effusion is detected. IMPRESSION: Demineralization. No acute bony abnormality is detected. Dictated by: Dictated on workstation # [id number]
--- NOTE | 2021-12-21 15:56 | Diagnostic Imaging Report ---
INDICATION: Fall and pelvic pain. TIME OF EXAM: 3:42 PM. AP view of the pelvis and two views of right hip were obtained. There is a subcapital right hip fracture. Femoral acetabular alignment is normal without evidence of dislocation. Rami appear intact. Left hip appears intact. IMPRESSION: Subcapital right hip fracture. Dictated by: Dictated on workstation # [id number]
--- NOTE | 2021-12-21 15:58 | Diagnostic Imaging Report ---
EXAMINATION: CT head and CT cervical spine without contrast. TECHNIQUE: Multiple contiguous axial images were obtained through the brain and cervical spine without the use of intravenous contrast. Sagittal and coronal reformations through the cervical spine were then performed. All CT scans use one or more of the following dose optimizing techniques: automated exposure control, MA and/or KvP adjustment based on patient size and exam type or iterative reconstruction. HISTORY: Head and neck pain after fall. COMPARISON: 12/12/2021. FINDINGS: HEAD: Mild diffuse cerebral volume loss with proportional enlargement of the ventricles and sulci. Mild hypodensities throughout the supratentorial white matter of both cerebral hemispheres. No acute intracranial hemorrhage or abnormal extra-axial fluid collections are present. No hyperdense vessel. The calvarium is intact. The mastoid air cells are clear. The visualized paranasal sinuses are clear. The orbits are normal. C-SPINE: Vertebral body height and alignment are preserved. No acute fracture, dislocation or destructive osseous process. There is multilevel facet hypertrophy without perched facets. There is multilevel cervical spondylosis. The paraspinous soft tissues are normal. The visualized thyroid gland is normal. The visualized lung apices are normal. IMPRESSION: 1. No acute intracranial abnormality. Chronic microangiopathy and volume loss. 2. Degenerative changes of the cervical spine without acute osseous abnormality. Dictated by: Dictated on workstation # [id number]
[2021-12-21] MEDS ORDERED: LIDOCAINE UROJET 2% GEL 10 ML PKG TOP ONE (16:45)
[2021-12-21 16:52] LABS: BILIRUBIN,URINE NEGATIVE (NEGATIVE); CLARITY,URINE CLEAR; COLOR,URINE YELLOW; GLUCOSE, URINE (UA) NEGATIVE (NEGATIVE); KETONES,URINE NEGATIVE (NEGATIVE); LEUKOCYTE ESTERASE ,URINE NEGATIVE (NEGATIVE); NITRITE,URINE NEGATIVE (NEGATIVE); PROTEIN,URINE NEGATIVE (NEGATIVE)
[2021-12-21] MEDS ORDERED: fentaNYL INJ 100 MCG/2 ML AMP IVP PRN (17:00)
[2021-12-21 17:08] LABS: BACTERIA,URINE NEGATIVE /HPF; RBC,URINE 0-2 /HPF
[2021-12-21 17:13] LABS: BASOPHILS % (AUTO) 0 % (0-10); LYMPHOCYTES # (AUTO) 0.6 10^3/uL (1.0-4.0)
[2021-12-21 17:15] LABS: EOSINOPHILS # (AUTO) 0.1 10^3/uL (0.0-0.3); EOSINOPHILS % (AUTO) 2 % (0-10); HEMATOCRIT 31 % (40-54); HEMOGLOBIN 9.9 g/dL (13.3-17.7); LYMPHOCYTES % (AUTO) 15 % (12-44); MEAN CORPUSCULAR HEMOGLOBIN 29 pg (25-34); MEAN CORPUSCULAR HGB CONC 32 g/dL (32-36); MEAN CORPUSCULAR VOLUME 89 fL (80-99); MEAN PLATELET VOLUME 10.3 fL (9.0-12.2); MONOCYTES # (AUTO) 0.2 10^3/uL (0.0-1.0); MONOCYTES % (AUTO) 5 % (0-12); NEUTROPHILS # (AUTO) 2.9 10^3/uL (1.8-7.8); NEUTROPHILS % (AUTO) 77 % (42-75); PLATELET COUNT 101 10^3/uL (130-400); WHITE BLOOD COUNT 3.8 10^3/uL (4.3-11.0)
[2021-12-21 17:16] LABS: ALBUMIN 3.8 GM/DL (3.2-4.5)
[2021-12-21 17:17] LABS: CALCIUM 9.1 MG/DL (8.5-10.1)
[2021-12-21 17:18] LABS: TOTAL PROTEIN 6.6 GM/DL (6.4-8.2)
[2021-12-21 17:20] LABS: BILIRUBIN,TOTAL 0.7 MG/DL (0.1-1.0)
[2021-12-21 17:22] LABS: CREATININE SERUM 1.44 MG/DL (0.60-1.30)
[2021-12-21 17:25] LABS: INR 2.1 (0.8-1.4); PROTHROMBIN TIME PATIENT 23.9 SEC (12.2-14.7)
[2021-12-21] MEDS ORDERED: ALPR0.25 PO (18:01)
[2021-12-21] MEDS ORDERED: TRZ50T PO (18:01)
[2021-12-21] MEDS ORDERED: RISP0.253 PO (18:01)
[2021-12-21] MEDS ORDERED: ACET325T38 PO (18:01)
[2021-12-21 18:03] VITALS: BP 183/87
[2021-12-21] MEDS: LACTATED RINGERS 1,000 ML IV SCH (18:10)
[2021-12-21] MEDS ORDERED: ONDANSETRON 4 MG/2 ML (SDV) Z0FRAN IVP PRN (18:15)
[2021-12-21] MEDS ORDERED: LORazepam INJ 2 MG/ML (ATIVAN) VIAL IV PRN (18:15)
[2021-12-21] MEDS ORDERED: fentaNYL INJ 100 MCG/2 ML AMP IV PRN (18:15)
[2021-12-21] MEDS ORDERED: CATHETER FLUSH 10 ML SYR IVP PRN (18:15)
[2021-12-21 19:43] VITALS: BP 157/95
[2021-12-21] MEDS ORDERED: RT-ALBUTEROL/IPRATROPIUM 3 ML (DUONEB) VIAL INH PRN (19:45)
[2021-12-21 20:30] VITALS: BP 186/86
[2021-12-21 20:50] VITALS: BP 161/87
[2021-12-21 23:54] VITALS: BP 146/88
[2021-12-22] VITALS (11 sets, daily range): BP systolic 137–181; BP diastolic 72–103
[2021-12-22] MEDS: LACTATED RINGERS 1,000 ML IV SCH (06:41)
[2021-12-22] MEDS ORDERED: ceFAZolin INJECTION 1,000 MG VIAL IV ONE (07:00)
--- NOTE | 2021-12-22 07:13 | History & Physical Orthopedic ---
History and Physical Subjective Date of Exam 12/22/21 Chief Complaint Right Hip Injury HPI/Events since last exam unwitnessed fall at assisted living, thigh pain, ER eval demonstrated right hip fracture Medical, Surgical History Surgeries: No (UNSURE) Respiratory: No Cardiac: Yes Atrial Fibrillation Neurological: Yes Dementia Genitourinary: No Musculoskeletal: No Endocrine: No HEENT: No Cancer: No Psychosocial: Yes Depression Integumentary: Yes Psoriasis Blood Disorders: Yes (ANEMIA) Social History not obtainable Family History not obtainable Review of Systems not obtainable Allergies: Coded Allergies: No Known Drug Allergies (Unverified , 12/21/21) Home Meds Reported Medications Acetaminophen (Tylenol) 325 Mg Tablet, 325 MG PO TID PRN for PAIN-MILD (1-4), TAB 12/21/21 Alprazolam (Xanax) 0.25 Mg Tablet, 0.25 MG PO Q6H PRN for AGITATION, TAB 12/21/21 Risperidone (Risperidone) 0.25 Mg Tablet, 0.25 MG PO, TAB 12/21/21 Trazodone HCl (Trazodone HCl) 50 Mg Tablet, 50 MG PO HS for 30 Days, TAB 12/21/21 Polyethylene Glycol 3350 (Miralax) 17 Gm Powd.pack, 17 GM PO PRN, EACH 09/13/21 Cholecalciferol (Vitamin D3) (Vitamin D3) 25 Mcg Capsule, 25 MCG PO DAILY, CAP 09/13/21 Loratadine (Claritin) 10 Mg Capsule, 10 MG PO DAILY, CAP 09/13/21 Sertraline HCl (Zoloft) 100 Mg Tablet, 100 MG PO HS, TAB 09/13/21 Memantine HCl (Namenda) 10 Mg Tablet, 10 MG PO BID, TAB 09/13/21 Dorzolamide HCl/Pf (Dorzolamide 2% Eye Drop) 10 Ml Drops, 1 DROP OP DAILY, DROPS 09/13/21 Latanoprost/Pf (Latanoprost 0.005% Eye Drop) 7.5 Ml Drops, 1 DROP OP HS, DROPS 09/13/21 Rivaroxaban (Xarelto) 15 Mg Tablet, 15 MG PO DAILY, TAB 09/13/21 Triamcinolone Acetonide (Triamcinolone Acetonide 0.5% Cream) 15 Gm Cream..g., 15 GM TP BID, EA 09/13/21 Hydrocodone Bit/Acetaminophen (HYDROcodone/APAP 5 MG/325 MG TAB) 1 Tab Tab, 0.5 TAB PO Q6H PRN for PAIN-SEE DOSE INSTRUCTIONS, TAB 09/13/21 Ondansetron HCl (Zofran) 4 Mg Tab, 4 MG PO Q6H PRN for NAUSEA/VOMITING, TAB 09/13/21 Polyethylene Glycol 3350 (Miralax) 17 Gm Powd.pack, 17 GM PO DAILY, EACH 09/13/21 Ferrous Sulfate (Ferosul) 325 Mg Tablet, 325 MG PO BID, TAB 09/13/21 Pantoprazole Sodium (Protonix) 40 Mg Tablet.dr, 40 MG PO DAILY, TAB 09/13/21 Objective Exam Right Leg: Mild swelling, moves leg spontaneously, distal pulses palpable, sensation grossly intact to light touch Vital Signs Vital Signs Date Time Temp Pulse Resp B/P (MAP) Pulse Ox O2 Delivery O2 Flow Rate FiO2 12/22/21 04:13 37.4 80 17 137/72 (93) 95 Nasal Cannula 3.00 12/21/21 23:54 37.9 71 20 146/88 (107) 99 Nasal Cannula 3.00 12/21/21 20:50 93 Nasal Cannula 7.00 12/21/21 20:50 99 161/87 (111) 12/21/21 20:30 38.6 90 22 186/86 (119) 94 Nasal Cannula 6.00 12/21/21 19:43 36.4 57 95 21 12/21/21 18:30 95 Nasal Cannula 2.00 12/21/21 18:03 37.0 111 24 183/87 (119) 92 Nasal Cannula 2.00 12/21/21 15:15 36.4 57 18 157/95 (115) 95 Room Air I & O 12/22/21 07:00 Intake Total 240 ml Output Total 625 ml Balance -385 ml Lab Results Laboratory Tests 12/21/21 16:45: Urine Color YELLOW, Urine Clarity CLEAR, Urine pH 6.0, Urine Specific [place] 1.020, Urine Protein NEGATIVE, Urine Glucose (UA) NEGATIVE, Urine Ketones NEGATIVE, Urine Nitrite NEGATIVE, Urine Bilirubin NEGATIVE, Urine Urobilinogen 1.0, Urine Leukocyte Esterase NEGATIVE, Urine RBC (Auto) TRACE-IH, Urine RBC 0- 2, Urine WBC NONE, Urine Squamous Epithelial Cells NONE, Urine Crystals NONE, Urine Bacteria NEGATIVE, Urine Casts NONE, Urine Mucus NEGATIVE, Urine Culture Indicated NO 12/21/21 16:50: White Blood Count 3.8L, Red Blood Count 3.46L, Hemoglobin 9.9L, Hematocrit 31L, Mean Corpuscular Volume 89, Mean Corpuscular Hemoglobin 29, Mean Corpuscular Hemoglobin Concent 32, Red Cell Distribution Width 15.6H, Platelet Count 101L, Mean Platelet Volume 10.3, Immature Granulocyte % (Auto) 1, Neutrophils (%) (Auto) 77H, Lymphocytes (%) (Auto) 15, Monocytes (%) (Auto) 5, Eosinophils (%) (Auto) 2, Basophils (%) (Auto) 0, Neutrophils # (Auto) 2.9, Lymphocytes # (Auto) 0.6L, Monocytes # (Auto) 0.2, Eosinophils # (Auto) 0.1, Basophils # (Auto) 0.0, Immature Granulocyte # (Auto) 0.0, Percent Immature Platelet Fraction 3.3, Prothrombin Time 23.9H, INR Comment 2.1H, Sodium Level 139, Potassium Level 4.0, Chloride Level 107, Carbon Dioxide Level 23, Anion Gap 9, Blood Urea Nitrogen 17, Creatinine 1.44H, Estimat Glomerular Filtration Rate 49, BUN/Creatinine Ratio 12, Glucose Level 95, Calcium Level 9.1, Corrected Calcium 9.3, Total Bilirubin 0.7, Aspartate Amino Transf (AST/SGOT) 14, Alanine Aminotransferase (ALT/SGPT) 12, Alkaline Phosphatase 43, Total Protein 6.6, Albumin 3.8 Imaging View of pelvis and views of hip from 12/21/21 were reviewed from PACS and demonstrated a nondisplaced subcapital femoral neck fracture on the right Assessment and Plan Assessment Nondisplaced right subcapital femoral neck fracture Problem List Nondisplaced right subcapital femoral neck fracture Plan I have recommend CRPP of right femoral neck fracture. Will plan on proceeding this AM. Final Diagonsis Nondisplaced right subcapital femoral neck fracture Level of the visit: Level 3 (preop global) ALEXA RECINOS MD Dec 22, 2021 07:13
[2021-12-22] MEDS ORDERED: fentaNYL INJ 100 MCG/2 ML AMP ONE (07:37)
[2021-12-22] MEDS ORDERED: proPOfol 200 MG/20 ML (DIPRIVAN) VIAL IV ONE (08:27)
[2021-12-22] MEDS ORDERED: ONDANSETRON 4 MG/2 ML (SDV) Z0FRAN ONE (08:27)
[2021-12-22] MEDS ORDERED: LIDOCAINE PF 2% 5 ML (XYLOCAINE) VIAL ONE (08:27)
[2021-12-22] MEDS ORDERED: SEVOFLURANE (ULTANE) 15 ML INHAL SOLN ONE (08:28)
[2021-12-22] MEDS ORDERED: LACTATED RINGERS 1,000 ML IV PRN (08:30)
--- NOTE | 2021-12-22 08:39 | Operative Report - Ortho ---
Operative Report Surgeon (s)/Volleyball Player (s) Surgeon ALEXA RECINOS MD Volleyball Player n/a Pre-Operative Diagnosis Nondisplaced Right Subcapital Femoral Neck Fracture Post-Operative Diagnosis same Operative Report Date of Procedure: Dec 22, 2021 Name of Procedure Performed: Closed Reduction and Pinning of Right Femoral Neck Fracture Description & Findings After obtaining informed consent and marking the patient in the preoperative holding area, IV antibiotics were administered. Patient was taken to the operating room and general anesthesia was induced. Right leg was placed in the traction spar. Left leg was placed in the well leg gaston. Surgical timeout was taken. C-arm was used to confirm continued reduction of the fracture. The right lower extremity was prepped and draped in the usual sterile fashion. Initially a guidewire was placed in the calcar position and centrally in the femoral neck. C-arm was used to evaluate position of the wire. 2nd wire was placed more superiorly and central in the femoral neck. A 3rd wire was placed more posteriorly. Position of the wires were confirmed on C-arm. Measurements were taken. A 110 mm calcar screw was placed, first by power and then seated by hand, the more superior screw was placed and it measured 100 mm, the last screw which was the more posterior one measured 105 mm. Wires were removed. Final AP and lateral images were obtained using C-arm and transferred to PACS. Images demonstrated adequate reduction of the femoral neck fracture and appropriate position of the screws. Wound was lavaged with normal saline. Subcutaneous layer was closed with 2-0 vicryl and skin was closed with jessica. Wound was dressed with xeroform, 4x4s, and tape. Patient tolerated the procedure well and was stable to the recovery room. Anesthesia Type General Estimated Blood Loss minimal Specimen(s) collected/removed None ALEXA RECINOS MD Dec 22, 2021 08:39
[2021-12-22] MEDS ORDERED: polyethylene glycoL POWDER 17 GM (MIRALAX) PACK PO SCH (08:45)
[2021-12-22] MEDS ORDERED: HYDROcodone/APAP 5 MG/325 MG (LORTAB) TAB PO PRN (08:45)
[2021-12-22] MEDS ORDERED: ALPRAZolam 0.25 MG (XANAX) TAB PO PRN (08:45)
--- NOTE | 2021-12-22 08:56 | Diagnostic Imaging Report ---
INDICATION: Hip fracture. TECHNIQUE: 3 intraprocedural images right hip FINDINGS/ IMPRESSION: The hospital radiology department provided fluoroscopic imaging in support of an interventional procedure. A radiologist was not present. Please reference the operating provider's procedure note. Fluoroscopy Time: 50.3 seconds Dictated by: Dictated on workstation # [id number]
[2021-12-22] MEDS ORDERED: NON-FORMULARY MEDICATION 1 EA EA (Loratadine (Claritin) 10 MG) PO SCH (09:00)
[2021-12-22] MEDS ORDERED: NON-FORMULARY MEDICATION 1 EA EA (Dorzolamide HCl/Pf (Dorzolamide 2% Eye Drop) 1 DROP) OP SCH (09:00)
[2021-12-22] MEDS ORDERED: NON-FORMULARY MEDICATION 1 EA EA (Cholecalciferol (Vitamin D3) (Vitamin D3) 25 MCG) PO SCH (09:00)
[2021-12-22] MEDS: DORZOLAMIDE 2% 10 ML BTL (TRUSOPT) OP SCH (09:15)
[2021-12-22] MEDS: TRIAMCINOLONE 0.5% CR (KENALOG) 15 GM TUBE TP SCH ×2 (09:15→21:35)
--- NOTE | 2021-12-22 09:17 | Anesthesia-General Post-Op ---
General Patient Condition Mental Status/LOC: Same as Preop Cardiovascular: Satisfactory Nausea/Vomiting: Absent Respiratory: Satisfactory Pain: Controlled Complications: Absent Post Op Complications Complications None Follow Up Care/Instructions Patient Instructions None needed. Anesthesia/Patient Condition Patient Condition Patient is doing well, no complaints, stable vital signs, no apparent adverse anesthesia problems. No complications reported per nursing. DESI CASTILLO CRNA Dec 22, 2021 09:16
[2021-12-22] MEDS ORDERED: fentaNYL INJ 100 MCG/2 ML AMP IVP ONE (09:30)
--- NOTE | 2021-12-22 09:33 | Consultation - Hospitalist ---
HPI History of Present Illness: HPI/Chief Complaint Patient is an 81-year-old male with past medical history of dementia, depression, atrial fibrillation who presented to the emergency department from [facility] due to a fall. This fall was unwitnessed but the mcc was concerned about a right hip fracture due to his pain and he was brought into the ER for evaluation. Imaging revealed a subcapital hip fracture and he was admitted to Ortho surgery services for surgical intervention. I am consulted for medical management. I saw him immediately postop and he is quite drwosy still from anethesia. He denies any complaints but mostly sleeps. His daughter provides the history. 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 He has been doing better on Risperdal 0.25mg BID. We discussed the typical course postop and how his dementia will likely worsen in the short term and hopefully will be able to improve. Source: patient Date Seen 12/22/21 Attending Physician Cy Martin MD PCP Cade Lara MD Referring Physician Date of Admission Dec 21, 2021 at 16:55 Home Medications & Allergies Home Medications Reviewed patient Home Medication Reconciliation performed by pharmacy medication reconciliations generation technician and/or nursing. Patients Allergies have been reviewed. Allergies Allergies Coded Allergies No Known Drug Allergies (Unverified12/21/21) Past Pihtygm-Zhhosx-Ydhmfz Hx Patient Social History Employed/Student: retired Tobacco Use?: No Use of E-Cig and/or Vaping dev: No Substance use?: No Alcohol Use?: No Pt feels they are or have been: No Immunizations Up To Date Date of Influenza Vaccine: Jun 29, 2021 First/Initial COVID19 Vaccinat: 01/17 Second COVID19 Vaccination Josh: 02/16 Tetanus Booster (TDap): Unknown Hepatitis A: No Hepatitis B: No Seasonal Allergies Seasonal Allergies: Yes Current Status Advance Directives: Unable to obtain Communicates: Verbally Primary Language: Thai Preferred Spoken Language: Thai Is interpretation needed?: No Past Medical History Atrial Fibrillation Dementia Depression Psoriasis Blood Disorders: Yes (ANEMIA) Family Medical History Reviewed Nursing Family Hx Review of Systems ROS-Unable to Obtain: sedated from anestheai still Constitutional: see HPI Physical Exam Physical Exam Vital Signs Vital Signs - First Documented 12/21/21 12/21/21 12/21/21 15:15 18:03 19:43 Temp 36.4 Pulse 57 Resp 18 B/P (MAP) 157/95 (115) Pulse Ox 95 O2 Delivery Room Air O2 Flow Rate 2.00 FiO2 21 Capillary Refill : Less Than 3 SecondsLess Than 3 Seconds Height, Weight, BMI Height: '" Weight: lbs. oz. kg; 19.65 BMI Method: General Appearance: No Apparent Distress, Chronically ill, Thin HEENT: Other (did not open eyes to exam, head wrapped in blanket) Neck: Normal Inspection, Supple Respiratory: Lungs Clear, No Accessory Muscle Use, No Respiratory Distress Cardiovascular: No Murmur, Normal Peripheral Pulses, Irregularly Irregular Gastrointestinal: Normal Bowel Sounds, Non Tender, Soft Genital/Rectal: Other (catheter in place) Extremity: Normal Capillary Refill, Normal Inspection, No Pedal Edema Neurologic/Psychiatric: Alert, Other (drowsy, briefly opened eyes to verbal stimuli and quickly back to sleep) Skin: Normal Color, Warm/Dry Results Results/Procedures Labs Laboratory Tests 12/21/21 16:50 12/23/21 05:55 Patient resulted labs reviewed. Imaging: Reviewed Imaging Report Imaging [facility] [place], [place] NAME: CELSA ARANA [facility] REC#: [id number] PT STATUS: REG ER : 1940 PHYSICIAN: SURESH CARTER APRN ADMIT DATE: 12/21/21/ER Signed Date of Exam:12/21/21 PELVIS WITH RIGHT HIP 2-3VIEWS INDICATION: Fall and pelvic pain. TIME OF EXAM: 3:42 PM. AP view of the pelvis and two views of right hip were obtained. There is a subcapital right hip fracture. Femoral acetabular alignment is normal without evidence of dislocation. Rami appear intact. Left hip appears intact. IMPRESSION: Subcapital right hip fracture. Dictated by: Dictated on workstation # [id number] Dict: 12/21/21 1550 Trans: 12/21/21 1556 [facility] [id number] Interpreted by: TERELL IGNACIO MD Electronically signed by: TERELL IGNACIO MD 12/21/21 1556 Assessment/Plan Assessment and Plan Assess & Plan/Chief Complaint Right subcapital hip fracture Management per Ortho Underwent reduction and pinning on 12/22 POD #0 Pain regimen ordered Bowel regimen PT/OT A-fib Chronic and persistent- failed ablation Rate controlled Resume Xarelto Dementia Anxiety Depression Continue home meds Will not resume Rexulti I called and updated his PCP SUZAN Chow with Dr Lara of admission DVT ppx: Xarelto Diagnosis/Problems Diagnosis/Problems (1) Unwitnessed fall Status: Acute (2) Hip fracture, right Status: Acute (3) Dementia Status: Acute KAYLA SANCHEZ MD Dec 22, 2021 09:33
[2021-12-22] MEDS: 1/2 NS IV SOLUTION 1,000 ML IV SCH (11:19)
[2021-12-22] MEDS: FERROUS SULF 325 MG (IRON) TAB PO SCH ×2 (14:26→14:27)
[2021-12-22] MEDS: polyethylene glycoL POWDER 17 GM (MIRALAX) PACK PO SCH (14:26)
[2021-12-22] MEDS: LORATADINE (CLARITIN) 10 MG TAB PO SCH (14:27)
[2021-12-22] MEDS: PANTOPRAZOLE 40 MG (PROTONIX) TAB PO SCH (14:27)
[2021-12-22] MEDS: RIVAROXABAN 15 MG TABLET (XARELTO) PO SCH (14:27)
[2021-12-22] MEDS: risperiDONE 0.25 MG (RisperDAL) TAB PO SCH ×2 (14:27→21:34)
[2021-12-22] MEDS: VITAMIN D3 25 MCG (1,000 UNITS) TABLET PO SCH (14:27)
[2021-12-22] MEDS: MEMANTINE 10 MG (NAMENDA) TABLET PO SCH ×2 (14:27→21:34)
[2021-12-22] MEDS ORDERED: NON-FORMULARY MEDICATION 1 EA EA (Latanoprost/Pf (Latanoprost 0.005% Eye Drop) 1 DROP) OP SCH (21:00)
[2021-12-22] MEDS: LATANOPROST 0.005% (XALATAN) OPHTH SOLN 2.5 ML OU SCH (21:34)
[2021-12-22] MEDS: traZODone 50 MG (DESYREL) TAB PO SCH (21:34)
[2021-12-22] MEDS: SERTRALINE 100 MG (ZOLOFT) TAB PO SCH (21:34)
[2021-12-23 04:00] VITALS: BP 167/92
[2021-12-23] MEDS: 1/2 NS IV SOLUTION 1,000 ML IV SCH ×3 (04:10→17:10)
[2021-12-23 06:16] LABS: HEMOGLOBIN 10.1 g/dL (13.3-17.7)
[2021-12-23 06:18] LABS: HEMATOCRIT 32 % (40-54); MEAN CORPUSCULAR HEMOGLOBIN 28 pg (25-34); MEAN CORPUSCULAR HGB CONC 32 g/dL (32-36); MEAN CORPUSCULAR VOLUME 89 fL (80-99); MEAN PLATELET VOLUME 10.3 fL (9.0-12.2); PLATELET COUNT 61 10^3/uL (130-400); WHITE BLOOD COUNT 7.9 10^3/uL (4.3-11.0)
[2021-12-23 06:34] LABS: POTASSIUM 3.8 MMOL/L (3.6-5.0)
[2021-12-23 06:35] LABS: CALCIUM 8.8 MG/DL (8.5-10.1)
[2021-12-23 06:40] LABS: CREATININE SERUM 1.41 MG/DL (0.60-1.30)
[2021-12-23 08:05] VITALS: BP 184/83
[2021-12-23] MEDS: polyethylene glycoL POWDER 17 GM (MIRALAX) PACK PO SCH (09:15)
--- NOTE | 2021-12-23 09:16 | Progress Note - Hospitalist ---
Subjective HPI/CC On Admission Date Seen by Provider: Dec 23, 2021 Time Seen by Provider: 09:08 Patient is an 81-year-old male with past medical history of dementia, depression, atrial fibrillation who presented to the emergency department from [facility] due to a fall. This fall was unwitnessed but the long-term was concerned about a right hip fracture due to his pain and he was brought into the ER for evaluation. Imaging revealed a subcapital hip fracture and he was admitted to Ortho surgery services for surgical intervention. I am consulted for medical management. I saw him immediately postop and he is quite drwosy still from anethesia. He denies any complaints but mostly sleeps. His daughter provides the history. 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 He has been doing better on Risperdal 0.25mg BID. We discussed the typical course postop and how his dementia will likely worsen in the short term and hope fully will be able to improve. Subjective/Events-last exam Pt is laying in bed and more alert. Neal Magui playing when I entered room and when asked about it he nodded. Not able to verbalize much. Daughter at bedside. Objective Exam Vital Signs Vital Signs Date Time Temp Pulse Resp B/P (MAP) Pulse Ox O2 Delivery O2 Flow Rate FiO2 12/23/21 09:05 Nasal Cannula 2.00 12/23/21 09:04 94 12/23/21 08:05 36.9 99 18 184/83 (116) 12/21/21 19:43 21 Capillary Refill : Less Than 3 SecondsLess Than 3 Seconds General Appearance: No Apparent Distress, Chronically ill, Thin Respiratory: Lungs Clear, No Respiratory Distress Cardiovascular: No Murmur, Irregularly Irregular Neurologic/Psychiatric: Alert, Disoriented Results/Procedures Lab Laboratory Tests 12/23/21 05:55 Patient resulted labs reviewed. Imaging: Reviewed Imaging Report Assessment/Plan Assessment and Plan Assess & Plan/Chief Complaint Right subcapital hip fracture Management per Ortho Underwent reduction and pinning on 12/22 POD #1 Pain regimen Bowel regimen PT/OT A-fib Chronic and persistent- failed ablation Rate controlled Resume Xarelto Thrombocytopenia Down from yesterday, appears chronic as in low 100s in August Not getting Lovenox Will consult hematology for work up of possible ITP Peripheral smear ordered Dementia Anxiety Depression Continue home meds Will not resume Rexulti I called and updated his PCP SUZAN Chow with Dr Lara of admission DVT ppx: Xarelto Diagnosis/Problems Diagnosis/Problems (1) Unwitnessed fall Status: Acute (2) Hip fracture, right Status: Acute (3) Dementia Status: Acute KAYLA SANCHEZ MD Dec 23, 2021 09:16
[2021-12-23] MEDS: FERROUS SULF 325 MG (IRON) TAB PO SCH ×2 (09:26→16:30)
[2021-12-23] MEDS: LORATADINE (CLARITIN) 10 MG TAB PO SCH (09:26)
[2021-12-23] MEDS: risperiDONE 0.25 MG (RisperDAL) TAB PO SCH ×2 (09:26→19:35)
[2021-12-23] MEDS: RIVAROXABAN 15 MG TABLET (XARELTO) PO SCH (09:26)
[2021-12-23] MEDS: MEMANTINE 10 MG (NAMENDA) TABLET PO SCH ×2 (09:26→19:35)
[2021-12-23] MEDS: VITAMIN D3 25 MCG (1,000 UNITS) TABLET PO SCH (09:26)
[2021-12-23] MEDS: PANTOPRAZOLE 40 MG (PROTONIX) TAB PO SCH (09:26)
[2021-12-23] MEDS: DORZOLAMIDE 2% 10 ML BTL (TRUSOPT) OP SCH (09:27)
[2021-12-23 09:33] LABS: ABSOLUTE RETIC # 39 10e9/uL (24-90); BASOPHILS % (AUTO) 0 % (0-10); EOSINOPHILS # (AUTO) 0.3 10^3/uL (0.0-0.3); EOSINOPHILS % (AUTO) 4 % (0-10); LYMPHOCYTES # (AUTO) 0.5 10^3/uL (1.0-4.0); LYMPHOCYTES % (AUTO) 6 % (12-44); MONOCYTES # (AUTO) 0.4 10^3/uL (0.0-1.0); MONOCYTES % (AUTO) 5 % (0-12); NEUTROPHILS # (AUTO) 6.8 10^3/uL (1.8-7.8); NEUTROPHILS % (AUTO) 84 % (42-75); RETICULOCYTE % 1.08 % (0.50-2.40)
[2021-12-23] MEDS: TRIAMCINOLONE 0.5% CR (KENALOG) 15 GM TUBE TP SCH ×3 (09:37→19:35)
--- NOTE | 2021-12-23 10:05 | Progress Note - Ortho ---
Progress Note Subjective Date of Exam 12/23/21 Chief Complaint POD #1 CRPP of Right FN Fx HPI/Events since last exam verbalizing this AM, some confusion, pain seems controlled Review of Systems - Allergies: Coded Allergies: No Known Drug Allergies (Unverified , 12/21/21) Home Meds Reported Medications Acetaminophen (Tylenol) 325 Mg Tablet, 325 MG PO TID PRN for PAIN-MILD (1-4), TAB 12/21/21 Alprazolam (Xanax) 0.25 Mg Tablet, 0.25 MG PO Q6H PRN for AGITATION, TAB 12/21/21 Risperidone (Risperidone) 0.25 Mg Tablet, 0.25 MG PO, TAB 12/21/21 Trazodone HCl (Trazodone HCl) 50 Mg Tablet, 50 MG PO HS for 30 Days, TAB 12/21/21 Polyethylene Glycol 3350 (Miralax) 17 Gm Powd.pack, 17 GM PO PRN, EACH 09/13/21 Cholecalciferol (Vitamin D3) (Vitamin D3) 25 Mcg Capsule, 25 MCG PO DAILY, CAP 09/13/21 Loratadine (Claritin) 10 Mg Capsule, 10 MG PO DAILY, CAP 09/13/21 Sertraline HCl (Zoloft) 100 Mg Tablet, 100 MG PO HS, TAB 09/13/21 Memantine HCl (Namenda) 10 Mg Tablet, 10 MG PO BID, TAB 09/13/21 Dorzolamide HCl/Pf (Dorzolamide 2% Eye Drop) 10 Ml Drops, 1 DROP OP DAILY, DROPS 09/13/21 Latanoprost/Pf (Latanoprost 0.005% Eye Drop) 7.5 Ml Drops, 1 DROP OP HS, DROPS 09/13/21 Rivaroxaban (Xarelto) 15 Mg Tablet, 15 MG PO DAILY, TAB 09/13/21 Triamcinolone Acetonide (Triamcinolone Acetonide 0.5% Cream) 15 Gm Cream..g., 15 GM TP BID, EA 09/13/21 Hydrocodone Bit/Acetaminophen (HYDROcodone/APAP 5 MG/325 MG TAB) 1 Tab Tab, 0.5 TAB PO Q6H PRN for PAIN-SEE DOSE INSTRUCTIONS, TAB 09/13/21 Ondansetron HCl (Zofran) 4 Mg Tab, 4 MG PO Q6H PRN for NAUSEA/VOMITING, TAB 09/13/21 Polyethylene Glycol 3350 (Miralax) 17 Gm Powd.pack, 17 GM PO DAILY, EACH 09/13/21 Ferrous Sulfate (Ferosul) 325 Mg Tablet, 325 MG PO BID, TAB 09/13/21 Pantoprazole Sodium (Protonix) 40 Mg Tablet.dr, 40 MG PO DAILY, TAB 09/13/21 Objective Exam Right Hip: Dressing C/D/I, spontaneously moves ankle, no s/s of DVT Vital Signs Vital Signs Date Time Temp Pulse Resp B/P (MAP) Pulse Ox O2 Delivery O2 Flow Rate FiO2 12/23/21 09:05 Nasal Cannula 2.00 12/23/21 09:04 94 Nasal Cannula 2.50 12/23/21 08:05 36.9 99 18 184/83 (116) 94 Nasal Cannula 2.50 12/23/21 04:00 36.7 90 18 167/92 (117) 91 Nasal Cannula 2.50 12/22/21 23:56 37.6 98 19 171/81 (111) 94 Nasal Cannula 2.50 12/22/21 20:40 Nasal Cannula 3.00 12/22/21 19:39 37.3 97 18 137/78 (97) 98 Nasal Cannula 2.50 12/22/21 16:05 36.8 94 18 168/81 (110) 95 Nasal Cannula 2.50 12/22/21 11:40 36.3 84 20 181/91 (121) 94 Nasal Cannula 2.50 I & O 12/23/21 06:59 Intake Total 110 ml Output Total 490 ml Balance -380 ml Lab Results Laboratory Tests 12/23/21 05:55: White Blood Count 7.9, Red Blood Count 3.57L, Hemoglobin 10.1L, Hematocrit 32L, Mean Corpuscular Volume 89, Mean Corpuscular Hemoglobin 28, Mean Corpuscular Hemoglobin Concent 32, Red Cell Distribution Width 15.6H, Platelet Count 61L, Mean Platelet Volume 10.3, Percent Immature Platelet Fraction 4.6, Sodium Level 138, Potassium Level 3.8, Chloride Level 108H, Carbon Dioxide Level 21, Anion Gap 9, Blood Urea Nitrogen 23H, Creatinine 1.41H, Estimat Glomerular Filtration Rate 50, BUN/Creatinine Ratio 16, Glucose Level 108H, Calcium Level 8.8 Microbiology 12/21/21 MRSA Screen - Final, Complete MRSA not isolated Assessment and Plan Assessment Right Femoral Neck Fracture s/p CRPP Problem List Right Femoral Neck Fracture s/p CRPP Plan WBAT for in room ambulation and transfers Will try to do PT Consider transfer back on Friday or Friday Final Diagonsis Right Femoral Neck Fracture s/p CRPP Level of the visit: Level 3 (postop global) ALEXA RECINOS MD Dec 23, 2021 10:05
--- NOTE | 2021-12-23 10:12 | Diagnostic Imaging Report ---
HISTORY: Left shoulder pain after fall. TECHNIQUE: 2 views of the left shoulder. COMPARISON: None FINDINGS: Bones appear osteopenic. No acute fracture is seen. There are moderate degenerative changes in the glenohumeral joint. There is mild degenerative change in the acromioclavicular joint. Alignment is normal. IMPRESSION: 1. Degenerative changes in the left shoulder with no acute osseous abnormality seen. Dictated by: Dictated on workstation # [id number]
[2021-12-23 10:57] LABS: BASOPHILS % (MANUAL) 2 %; ELLIPT/OVALOCYTES SLIGHT; EOSINOPHILS % (MANUAL) 4 %; LYMPHOCYTES % (MANUAL) 9 %; MONOCYTES % (MANUAL) 3 %; NEUTROPHILS % (MANUAL) 82 %; POIKILOCYTOSIS SLIGHT; SCHISTOCYTES SLIGHT
[2021-12-23 11:20] VITALS: BP 157/97
[2021-12-23] MEDS: ACETAMINOPHEN 325 MG TABLET PO PRN (13:55)
[2021-12-23 15:43] VITALS: BP 144/80
--- NOTE | 2021-12-23 16:59 | Diagnostic Imaging Report ---
PROCEDURE: CT head without contrast. TECHNIQUE: Multiple contiguous axial images were obtained through the brain without the use of intravenous contrast. Auto Exposure Controls were utilized during the CT exam to meet ALARA standards for radiation dose reduction. INDICATION: CVA. Hip surgery. Altered mental status, postop lethargy. COMPARISON: 12/21/2021. FINDINGS: The ventricles and cortical sulci are diffusely prominent. There is no midline shift or mass effect. No acute intracranial hemorrhage is seen. There is a small lacunar infarct in the right basal ganglia. There are areas of hypoattenuation in the white matter which are likely from chronic microvascular disease. The calvarium appears intact. Visualized paranasal sinuses are clear. IMPRESSION: 1. No acute intracranial hemorrhage or CT evidence of acute territorial ischemia. 2. Generalized parenchymal volume loss and findings of chronic microvascular disease. Dictated by: Dictated on workstation # [id number]
[2021-12-23] MEDS: LATANOPROST 0.005% (XALATAN) OPHTH SOLN 2.5 ML OU SCH (19:33)
[2021-12-23] MEDS: traZODone 50 MG (DESYREL) TAB PO SCH (19:35)
[2021-12-23] MEDS: SERTRALINE 100 MG (ZOLOFT) TAB PO SCH (19:35)
[2021-12-23 20:22] VITALS: BP 125/93
[2021-12-23 23:27] VITALS: BP 170/86
[2021-12-24 04:00] VITALS: BP_SYST 168; BP_DIAS 88; BP_DIAS 98
[2021-12-24] MEDS: 1/2 NS IV SOLUTION 1,000 ML IV SCH ×2 (06:59→20:40)
[2021-12-24 07:46] VITALS: BP 183/103
[2021-12-24 08:30] LABS: HEMOGLOBIN 9.2 g/dL (13.3-17.7)
[2021-12-24 08:32] LABS: BASOPHILS % (AUTO) 0 % (0-10); EOSINOPHILS # (AUTO) 0.3 10^3/uL (0.0-0.3); EOSINOPHILS % (AUTO) 5 % (0-10); HEMATOCRIT 29 % (40-54); LYMPHOCYTES # (AUTO) 0.4 10^3/uL (1.0-4.0); LYMPHOCYTES % (AUTO) 6 % (12-44); MEAN CORPUSCULAR HEMOGLOBIN 28 pg (25-34); MEAN CORPUSCULAR HGB CONC 32 g/dL (32-36); MEAN CORPUSCULAR VOLUME 88 fL (80-99); MEAN PLATELET VOLUME 11.6 fL (9.0-12.2); MONOCYTES # (AUTO) 0.4 10^3/uL (0.0-1.0); MONOCYTES % (AUTO) 6 % (0-12); NEUTROPHILS # (AUTO) 5.3 10^3/uL (1.8-7.8); NEUTROPHILS % (AUTO) 82 % (42-75); PLATELET COUNT 64 10^3/uL (130-400); WHITE BLOOD COUNT 6.5 10^3/uL (4.3-11.0)
[2021-12-24 08:47] LABS: CALCIUM 8.5 MG/DL (8.5-10.1); CREATININE SERUM 1.32 MG/DL (0.60-1.30); POTASSIUM 4.3 MMOL/L (3.6-5.0)
--- NOTE | 2021-12-24 09:52 | Physical Therapy Evaluation ---
PT Evaluation-General Medical Diagnosis Admission Date Dec 21, 2021 at 16:55 Medical Diagnosis: subcapital right hip fracture Onset Date: Dec 21, 2021 Therapy Diagnosis Therapy Diagnosis: generalized weakness/debility Precautions Precautions/Isolations: Fall Prevention, Standard Precautions Weight Bear Status Right Lower Extremity: Right Weight Bearing/Tolerated Left Lower Extremity: Left Full Weight Bearing Referral Physician: Veronica Reason for Referral: Evaluation/Treatment Medical History Pertinent Medical History: Atrial Fib, Dementia Current History unwitnessed fall at [place] Reviewed History: Yes Social History Home: Long Term Prior Prior Level of Function SCALE: Activities may be completed with or without assistive devices. 9-Pnjtbeiayo-cekkpyi completes the activity by him/herself with no assistance from a helper. 5-Set-up or Clean-up Assistance-helper sets up or cleans up; patient completes activity. [place] assists only prior to or following the activity. 4-Supervision or Touching Assistance-helper provides verbal cues and/or touching/steadying and/or contact guard assistance as patient completes activity. Assistance may be provided throughout the activity or intermittently. 3-Partial/Moderate Assistance-helper does LESS THAN HALF the effort. [place] lifts, holds or supports trunk or limbs, but provides less than half the effort. 2-Substantial/Maximal Assistance-helper does MORE THAN HALF the effort. [place] lifts or holds trunk or limbs and provides more than half the effort. 4-Lsuqchmji-miygil does ALL the effort. Patient does none of the effort to complete the activity. Or, the assistance of 2 or more helpers is required for the patient to complete the activity. If activity was not attempted, code reason: 7-Patient Refused. 9-Not Applicable-not attempted and the patient did not perform the activity before the current illness, exacerbation or injury. 10-Not Attempted due to Environmental Limitations-(lack of equipment, weather restraints, etc.). 88-Not Attempted due to Medical Conditions or Safety Concerns. Bed Mobility: 3 Transfers (B,C,W/C): 3 Gait: 3 Indoor Mobility (Ambulation): Needed Some Help Prior Devices Use: Walker per family PT Evaluation-Current Subjective Patient very listless but does wake. Very verbally and physically aggressive. Objective Patient Orientation: Confused ROM/Strength ROM Lower Extremities bilateral LE WFL Strength Lower Extremities unable to determine MMT due to patient's inability to actively participate. Integumentary/Posture Integumentary refer to nursing notes Bladder Incontinence: Graham Cath Posture WFL Neuromuscular (Tone, Coordination, Reflexes) severely diminished coordination Sensory Vision: Unable to Assess Hearing: Functional Transfers Roll Left to Right (QC): 1 (x 2) Sit to Lying (QC): 1 (x 2) Lying to Sitting/Side of Bed(Q: 1 (x 2) Sit to Stand (QC): 88 Chair/Vpc-qh-Dcxsc Xfer(QC): 88 Patient is very resistive and combative with all physical mobility requiring dependent assist of 2. Gait Does the Patient Walk?: No and Walking Goal IS indicated Balance Sitting Static: Poor Sitting Dynamic: Poor Assessment/Needs 81 y.o. male, is very confused and agitated requiring continuous redirection, however, unsuccessful with this. Patient is combative hitting this PT several time. Patient is not safe for OOB activity at this time. RN notified. Rehab Potential: Guarded PT Retirement Goals Elementary Tutor Goals PT Elementary Tutor Goals Time Frame: Jan 05, 2022 Roll Left & Right (QC): 2 Sit to Lying (QC): 2 Lying-Sitting on Side/Bed(QC): 2 Sit to Stand (QC): 2 Chair/Yjw-ie-Xtrau Xfer(QC): 2 PT Plan Problem List Problem List: Activity Tolerance, Functional Strength, Safety, Balance, Gait, Transfer, Bed Mobility Treatment/Plan Treatment Plan: Continue Plan of Care Treatment Plan: Bed Mobility, Education, Functional Activity Tammie, Functional Strength, Gait, Safety, Therapeutic Exercise, Transfers Treatment Duration: Dec 24, 2021 Frequency: 6 times per week Estimated Hrs Per Day: .25 hour per day Time/GCodes Time In: 755 Time Out: 809 Total Billed Treatment Time: 14 Total Billed Treatment 1 visit EVMod 14 min FRIEDA CARDONA PT Dec 24, 2021 09:52
[2021-12-24] MEDS: risperiDONE 0.25 MG (RisperDAL) TAB PO SCH ×3 (11:24→22:42)
[2021-12-24] MEDS: FERROUS SULF 325 MG (IRON) TAB PO SCH ×2 (11:24→18:32)
[2021-12-24] MEDS: MEMANTINE 10 MG (NAMENDA) TABLET PO SCH ×3 (11:24→22:42)
[2021-12-24] MEDS: RIVAROXABAN 15 MG TABLET (XARELTO) PO SCH (11:24)
[2021-12-24] MEDS: PANTOPRAZOLE 40 MG (PROTONIX) TAB PO SCH (11:24)
[2021-12-24] MEDS: LORATADINE (CLARITIN) 10 MG TAB PO SCH (11:24)
[2021-12-24] MEDS: VITAMIN D3 25 MCG (1,000 UNITS) TABLET PO SCH (11:24)
[2021-12-24] MEDS: DORZOLAMIDE 2% 10 ML BTL (TRUSOPT) OP SCH (11:25)
[2021-12-24] MEDS: ACETAMINOPHEN 325 MG TABLET PO PRN (11:35)
--- NOTE | 2021-12-24 11:37 | Oncology Consultation ---
Visit Information Visit Information Date of Admission Dec 21, 2021 at 16:55 Attending Physician Cy Martin MD Admitting Physician Cade Lara MD Chief Complaint Drop of Plt post-op of hip surgery. On Xarelto for h/o Afib. Interval History Patient is an 81-year-old male with past medical history of dementia, depression, atrial fibrillation on Xarelto who presented to the emergency department from [facility] [place] due to a fall and found to have right hip fracture. He underwent surgical intervention 12/22/2021. Plt was 110 at ER 12/21/2021 and dropped to 61 on 12/23/2021. I am consulted for hematological issues. His daughter provides the history. 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 He has been doing better on Risperdal 0.25mg BID. I consulted the patient on: 12/24/21 11:32 Time Seen by Provider: 11:32 Review of Systems Constitutional: see HPI Health Status Allergies Coded Allergies: No Known Drug Allergies (Unverified , 12/21/21) Home Medications Acetaminophen (Tylenol) 325 Mg Tablet, 650 MG PO TID PRN for PAIN-MILD (1-4), (Reported) TAKES 2 (325MG) TAB Alprazolam (Xanax) 0.25 Mg Tablet, 0.25 MG PO Q6H PRN for AGITATION, (Reported) Cholecalciferol (Vitamin D3) (Vitamin D3) 25 Mcg Capsule, 50 MCG PO DAILY, (R eported) TAKES 2 (25MCG) TAB Dorzolamide HCl/Pf (Dorzolamide 2% Eye Drop) 10 Ml Drops, 1 DROP OP DAILY, (Reported) Ferrous Sulfate (Ferosul) 325 Mg Tablet, 325 MG PO BID, (Reported) Hydrocodone Bit/Acetaminophen (HYDROcodone/APAP 5 MG/325 MG TAB) 1 Tab Tab, 0.5 TAB PO Q6H PRN for PAIN-SEE DOSE INSTRUCTIONS, (Reported) Latanoprost/Pf (Latanoprost 0.005% Eye Drop) 7.5 Ml Drops, 1 DROP OP HS, (Reported) Loratadine (Claritin) 10 Mg Capsule, 10 MG PO DAILY, (Reported) Melatonin/Pyridoxine HCl (B6) (Melatonin 3 mg Tablet) 1 Each Tablet, 1 EACH PO HS PRN for SLEEP, (Reported) Memantine HCl (Namenda) 10 Mg Tablet, 10 MG PO BID, (Reported) Ondansetron (Ondansetron Odt) 4 Mg Tab.rapdis, 4 MG PO Q6H PRN for NAUSEA/VOMITING, (Reported) Pantoprazole Sodium (Protonix) 40 Mg Tablet.dr, 40 MG PO DAILY, (Reported) Polyethylene Glycol 3350 (Miralax) 17 Gm Powd.pack, 17 GM PO DAILY, (Reported) Polyethylene Glycol 3350 (Miralax) 17 Gm Powd.pack, 17 GM PO PRN, (Reported) Risperidone (Risperidone) 0.25 Mg Tablet, 0.25 MG PO BID, (Reported) Rivaroxaban (Xarelto) 15 Mg Tablet, 15 MG PO DAILY, (Reported) Sertraline HCl (Zoloft) 100 Mg Tablet, 100 MG PO HS, (Reported) Trazodone HCl (Trazodone HCl) 50 Mg Tablet, 50 MG PO HS, (Reported) Triamcinolone Acetonide (Triamcinolone Acetonide 0.5% Cream) 15 Gm Cream..g., 1 APPLIC TP BID, (Reported) VCZ-Honofm-Bbadnv Hx Patient Social History Employed/Student: retired 2nd Hand Smoke Exposure: No Recent Hopitalizations: No Alcohol Use?: No Have you traveled recently?: Unable to obtain Immunizations Up To Date Tetanus Booster (TDap): Unknown Date of Influenza Vaccine: Jun 29, 2021 Physical Exam Vital Signs Vital Signs - First Documented 12/21/21 12/21/21 12/21/21 15:15 18:03 19:43 Temp 36.4 Pulse 57 Resp 18 B/P (MAP) 157/95 (115) Pulse Ox 95 O2 Delivery Room Air O2 Flow Rate 2.00 FiO2 21 Capillary Refill : Less Than 3 SecondsLess Than 3 Seconds Height, Weight, BMI Height: '" Weight: lbs. oz. kg; 19.65 BMI Method: General Appearance: No Apparent Distress, Thin, Other (very sleepy, not able to have any meningful communication) HEENT: PERRL/EOMI Respiratory: No Accessory Muscle Use, No Respiratory Distress Data Review Labs Laboratory Tests 12/24/21 08:20 Laboratory Tests 12/21/21 16:45: Urine RBC (Auto) TRACE-IH 12/21/21 16:50: White Blood Count 3.8L, Red Blood Count 3.46L, Hemoglobin 9.9L, Hematocrit 31L, Red Cell Distribution Width 15.6H, Platelet Count 101L, Neutrophils (%) (Auto) 77H, Lymphocytes # (Auto) 0.6L, Prothrombin Time 23.9H, INR Comment 2.1H, Creatinine 1.44H 12/23/21 05:55: Red Blood Count 3.57L, Hemoglobin 10.1L, Hematocrit 32L, Red Cell Distribution Width 15.6H, Platelet Count 61L, Neutrophils (%) (Auto) 84H, Lymphocytes # (Auto) 0.5L, Creatinine 1.41H, Lymphocytes (%) (Auto) 6L, Chloride Level 108H, Blood Urea Nitrogen 23H, Glucose Level 108H 12/24/21 08:20: Red Blood Count 3.27L, Hemoglobin 9.2L, Hematocrit 29L, Red Cell Distribution Width 15.5H, Platelet Count 64L, Neutrophils (%) (Auto) 82H, Lymphocytes # (Auto) 0.4L, Creatinine 1.32H, Lymphocytes (%) (Auto) 6L, Blood Urea Nitrogen 23H Impression & Plan Impression & Plan IMP: 1. Pancytopenia WBC 3.8, Hb 9.9 and Plt 101 at ER, ? etiology. According to her daughter, pt had blood counts issue 06/2022 with Hb 7.5. I think he might have early MDS before the hip fracture. He is not able to make sufficient Plt to compensate the need of the surgery, less likely ITP. Also recently change of his psychotic medication. 2. 81 year old male with right hip fracture after a fall at correction.s/p surgical intervention 12/22/2021 3. h/o aFib on Xarelto, dose reduced at 15mg daily. 4. Dementia. 5. Acute on chronic renal insufficiency. Rec: 1. I would not do any work up at this point. We can wait until he is recovered from the hip fracture unless his Plt drop to below 20 and Hb drop below 7. 2. Because of his Plt is not too back and no excessive bleeding at this point, we can watch his blood counts for now. I would NOT initiate the Prednisone for possible ITP because the steroid will delay the wound healing. If his Plt drop to below 20 or if he bleeding, I will consider the steroids treatment or IVIG. 3. Will f/u with you. 4. If his blood counts are still not recovered in 2-3 months, then consider work up possible bone marrow exam as out-pt. 5. Stay on Xarelto at 15mg daily for now. I discussed above plan with his daughter over the phone. Thank you for the consultation. LORENE HERNANDEZ MD Dec 24, 2021 11:37
[2021-12-24] MEDS ORDERED: MELA1TAB27 PO (11:41)
--- NOTE | 2021-12-24 11:46 | ST Dysphagia Evaluation ---
Speech Evaluation-General Medical Diagnosis Subcapital Right Hip Fracture Onset Date: Dec 21, 2021 Therapy Diagnosis Therapy Diagnosis: Oropharyngeal Dysphagia Precautions Precautions: Fall, Aspiration Precautions/Isolations: Aspiration, Fall Prevention, Standard Precautions Referral Referring Physician: Dr. Mansfield Reason for Referral: Evaluation/Treatment Medical History Pertinent Medical History: Atrial Fib, Dementia Current History The patient is an 81 year old male with a past medical history of dementia, atrial fibrillation, depression, and anemia, who presented to [facility] following an unwitnessed fall. The patient was found to have a right hip fracture and underwent repair. A CXR is not available at this time. Reviewed History: Yes Speech PLF/Current-Dysphagia Prior Level of Function The patient consumed a regular consistency diet with thin liquids at his prior home location ([facility]). The patient is unable to provide additional information regard prior level of function due to current level of confusion. Subjective The patient was lying in bed, intermittently with eyes open, upon entrance by the clinician to his room. The patient's daughter was present at bedside. The patient was positioned upright in bed by the patient measurement technician for safe swallowing position. The patient requires frequent redirection to task and consistent verbal prompting for completion of the clinical bedside swallowing evaluation. The patient displays audible oral and hyopharyngeal secretions at rest. Suctioning was attempted by the clinician but refused by the patient. Cognitive Status Patient Orientation: Confused Oral Motor Skills Dentition: Natural Ability to Follow Directions: Poor Oral Expression Ability: Severe Impairment Observation: Excessive Secretions Oral, Excessive Excretion Hypopharynx, Oral Cavity Suction, Hypopharynx Suction Voice Voice Phonatory-Based Quality: Weak Voice Pitch: Normal Voice Loudness: Mildly Soft/Quiet Face Facial Symmetry: Symmetrical Oral-Facial Assessment Oral-Facial Dentition: Normal Labial Seal Description: Weak Smile: Poor Coordination Volitional Dry Swallow: No Voluntary Cough: No Can Clear Throat Volitionally: No Productive Cough: No Productive Throat Clear: No Dysphagia Evaluation Consistencies Presented: Thin Liquid, [place] Thick Liquid, Pureed Oral Phase: Anterior Spillage, Oral Residue, Left Pocketing, Unable to Suck Straw, Reduced Oral Transit The patient required multiple attempts to draw a thin liquid bolus through the straw. Additionally, mild anterior spillage was present with all consistencies completed. Continued lingual pumping was required to move the bolus posterior in the oral cavity and initiate a pharyngeal swallow. Left pocketing and mild lingual residue was present with puree consistencies which required a thin liquid wash to remove from the oral cavity. Pharyngeal Phase: Multiple Swallow Attempts, Clears Throat, Reduced Laryngeal Elevation, Delayed Swallow The patient demonstrated a poorly coordinated and "sluggish" pharyngeal swallow response. Moderate verbal cueing was requiring for initiating a pharyngeal swallow. - Ice Chips: Overt s/s of suspected aspiration were not present following five ice chips. Thin Liquids: The patient demonstrated an increasingly wet vocal quality with the teaspoons of thin liquid provided. A rigorous cough was present following two straw trials. [place]-Thick Liquid: The patient demonstrated an increasingly wet vocal quality with the teaspoons of nectar thick liquid provided, as well as, an intermittent throat clearing. Suctioning was attempted and offered by the clinician, however, refused by the patient. Puree: The patient displayed delayed throat clearing following multiple trials of puree. Additionally, oral holding behaviors and left pocketing was present. Funct. Velo/Pharyngeal Symptom: Clears Throat, Cough After Swallow, Wet Voice Dietary Recommendations: NPO Liquid Recommendations: NPO Recommendations: - The patient remains with reduced periods of alertness, decreased attention and a high level of confusion. At the patient's current state, the clinician does not recommend a P.O. diet consistency secondary to overall patient safety. Increased alertness level is recommended prior to continuing an oral diet with this patient as he remains at a high level of aspiration risk in his current state. - NPO. - Essential medication crushed and placed in puree for administration (during appropriate periods of alertness). - Frequent and excellent oral care to reduce the transfer of oral bacteria to the lungs should aspiration of secretions occur. - Following oral care, ice chips (sparingly) for oral comfort. - Speech pathology to reassess the patient's oropharyngeal swallowing function as appropriate. The recommendations were shared with the patient's daughter (who was at bedside) and the assigned RN. Dysphagia Evaluation Summary The patient displays oropharyngeal dysphagia characterized by decreased lingual and oral coordination, reduced and delayed pharyngeal swallow initiation and suspected decreased base of tongue retraction. Overall poor airway protection was present during the swallowing attempts. The patient's swallowing function is most likely greatly impacted by his level of decreased mentation. Speech Short Term Goals Short Term Goals Short Term Goals 1. The patient will participate in P.O. trials of the least restrictive consistency without s/s of suspected aspiration. Time Frame-STG: Three Days. Speech Supplier Specialist Goals Supplier Specialist Goals 1. The patient will tolerate the least restrictive diet consistency without s/s of suspected aspiration. Time Frame: One Week. Speech-Plan Treatment Plan Speech Therapy Treatment Plan: Continue Plan of Care Treatment Duration: Dec 31, 2021 Frequency: 3 times per week Estimated Hrs Per Day: .25 hour per day Rehab Potential: Poor Pt/Family Agrees to Plan: Yes Safety Risks/Education Teaching Recipient: Patient, Family Teaching Methods: Discussion Response to Teaching: Reinforcement Needed Education Topics Provided: Results, Recommendations Time Speech Therapy Time In: 10:49 Speech Therapy Time Out: 11:18 Total Billed Time: 29 Billed Treatment Time 1, DOROTHY CRESPO ELIZABETH ST Dec 24, 2021 11:46
[2021-12-24] MEDS ORDERED: ONDA4TAB11 PO (11:47)
[2021-12-24] MEDS: polyethylene glycoL POWDER 17 GM (MIRALAX) PACK PO SCH (11:50)
[2021-12-24] MEDS: TRIAMCINOLONE 0.5% CR (KENALOG) 15 GM TUBE TP SCH ×2 (11:50→20:59)
[2021-12-24 12:00] VITALS: BP 152/81
[2021-12-24 15:27] VITALS: BP_SYST 140; BP_SYST 184; BP_DIAS 70; BP_DIAS 81
--- NOTE | 2021-12-24 18:19 | Progress Note - Hospitalist ---
Subjective HPI/CC On Admission Date Seen by Provider: Dec 24, 2021 Time Seen by Provider: 10:45 Patient is an 81-year-old male with past medical history of dementia, depression, atrial fibrillation who presented to the emergency department from [facility] due to a fall. This fall was unwitnessed but the [facility] was concerned about a right hip fracture due to his pain and he was brought into the ER for evaluation. Imaging revealed a subcapital hip fracture and he was admitted to Ortho surgery services for surgical intervention. I am consulted for medical management. I saw him immediately postop and he is quite drwosy still from anethesia. He denies any complaints but mostly sleeps. His daughter provides the history. 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 He has been doing better on Risperdal 0.25mg BID. We discussed the typical course postop and how his dementia will likely worsen in the short term and hope fully will be able to improve. Subjective/Events-last exam He denies pain. He denies shortness of breath. His daughter is present. She says he was in pain earlier. Objective Exam Vital Signs Vital Signs Date Time Temp Pulse Resp B/P (MAP) Pulse Ox O2 Delivery O2 Flow Rate FiO2 12/24/21 15:27 36.7 88 22 140/70 (93) 94 Nasal Cannula 2.00 12/21/21 19:43 21 Capillary Refill : Less Than 3 SecondsLess Than 3 Seconds General Appearance: No Apparent Distress, Chronically ill, Thin Respiratory: Lungs Clear, No Respiratory Distress Cardiovascular: No Murmur, Irregularly Irregular Gastrointestinal: Normal Bowel Sounds, Soft Extremity: Normal Inspection, Non Tender Neurologic/Psychiatric: Alert, Disoriented, Motor Weakness Skin: Normal Color, Warm/Dry Results/Procedures Lab Laboratory Tests 12/24/21 08:20 Patient resulted labs reviewed. Imaging: Reviewed Imaging Report Assessment/Plan Assessment and Plan Assess & Plan/Chief Complaint Right subcapital hip fracture Management per Ortho Underwent reduction and pinning on 12/22 Pain regimen Bowel regimen PT/OT A-fib Chronic and persistent- failed ablation Rate controlled Continue Xarelto Thrombocytopenia Stable Hematology consulted Dementia Delirium Anxiety Depression Continue home meds Will not resume Rexulti DVT prophylaxis: already receiving therapeutic anticoagulation Diagnosis/Problems Diagnosis/Problems (1) Hip fracture, right Status: Acute (2) Dementia Status: Acute (3) Thrombocytopenia Status: Acute (4) Delirium Status: Acute ADRIANA SEO MD Dec 24, 2021 18:19
[2021-12-24 19:15] VITALS: BP 150/84
[2021-12-24] MEDS: LATANOPROST 0.005% (XALATAN) OPHTH SOLN 2.5 ML OU SCH (20:59)
[2021-12-24] MEDS: traZODone 50 MG (DESYREL) TAB PO SCH ×2 (20:59→22:42)
[2021-12-24] MEDS: SERTRALINE 100 MG (ZOLOFT) TAB PO SCH ×2 (20:59→22:42)
[2021-12-24 23:47] VITALS: BP 161/83
[2021-12-25 03:19] VITALS: BP 168/109
[2021-12-25 05:21] LABS: BASOPHILS % (AUTO) 1 % (0-10); EOSINOPHILS # (AUTO) 0.4 10^3/uL (0.0-0.3)
[2021-12-25 05:23] LABS: EOSINOPHILS % (AUTO) 7 % (0-10); HEMATOCRIT 29 % (40-54); HEMOGLOBIN 9.2 g/dL (13.3-17.7); LYMPHOCYTES # (AUTO) 0.4 10^3/uL (1.0-4.0); LYMPHOCYTES % (AUTO) 8 % (12-44); MEAN CORPUSCULAR HEMOGLOBIN 28 pg (25-34); MEAN CORPUSCULAR HGB CONC 32 g/dL (32-36); MEAN CORPUSCULAR VOLUME 88 fL (80-99); MEAN PLATELET VOLUME 11.7 fL (9.0-12.2); MONOCYTES # (AUTO) 0.4 10^3/uL (0.0-1.0); MONOCYTES % (AUTO) 7 % (0-12); NEUTROPHILS % (AUTO) 77 % (42-75); PLATELET COUNT 73 10^3/uL (130-400); WHITE BLOOD COUNT 5.2 10^3/uL (4.3-11.0)
--- NOTE | 2021-12-25 07:54 | Progress Note - Ortho ---
Progress Note Subjective Date of Exam 12/25/21 Chief Complaint POD #3 CRPP of R FN Fx HPI/Events since last exam patient in bed, resting, verbalizes very little with any question Review of Systems - Allergies: Coded Allergies: No Known Drug Allergies (Unverified , 12/21/21) Home Meds Reported Medications Ondansetron (Ondansetron Odt) 4 Mg Tab.rapdis, 4 MG PO Q6H PRN for NAUSEA/VOMITING, TAB 12/24/21 Melatonin/Pyridoxine HCl (B6) (Melatonin 3 mg Tablet) 1 Each Tablet, 1 EACH PO HS PRN for SLEEP, TAB 12/24/21 Acetaminophen (Tylenol) 325 Mg Tablet, 650 MG PO TID PRN for PAIN-MILD (1-4), TAB TAKES 2 (325MG) TAB 12/21/21 Alprazolam (Xanax) 0.25 Mg Tablet, 0.25 MG PO Q6H PRN for AGITATION, TAB 12/21/21 Risperidone (Risperidone) 0.25 Mg Tablet, 0.25 MG PO BID, TAB 12/21/21 Trazodone HCl (Trazodone HCl) 50 Mg Tablet, 50 MG PO HS, TAB 12/21/21 Polyethylene Glycol 3350 (Miralax) 17 Gm Powd.pack, 17 GM PO PRN, EACH 09/13/21 Cholecalciferol (Vitamin D3) (Vitamin D3) 25 Mcg Capsule, 50 MCG PO DAILY, CAP TAKES 2 (25MCG) TAB 09/13/21 Loratadine (Claritin) 10 Mg Capsule, 10 MG PO DAILY, CAP 09/13/21 Sertraline HCl (Zoloft) 100 Mg Tablet, 100 MG PO HS, TAB 09/13/21 Memantine HCl (Namenda) 10 Mg Tablet, 10 MG PO BID, TAB 09/13/21 Dorzolamide HCl/Pf (Dorzolamide 2% Eye Drop) 10 Ml Drops, 1 DROP OP DAILY, DROPS 09/13/21 Latanoprost/Pf (Latanoprost 0.005% Eye Drop) 7.5 Ml Drops, 1 DROP OP HS, DROPS 09/13/21 Rivaroxaban (Xarelto) 15 Mg Tablet, 15 MG PO DAILY, TAB 09/13/21 Triamcinolone Acetonide (Triamcinolone Acetonide 0.5% Cream) 15 Gm Cream..g., 1 APPLIC TP BID, EA 09/13/21 Hydrocodone Bit/Acetaminophen (HYDROcodone/APAP 5 MG/325 MG TAB) 1 Tab Tab, 0.5 TAB PO Q6H PRN for PAIN-SEE DOSE INSTRUCTIONS, TAB 09/13/21 Polyethylene Glycol 3350 (Miralax) 17 Gm Powd.pack, 17 GM PO DAILY, EACH 09/13/21 Ferrous Sulfate (Ferosul) 325 Mg Tablet, 325 MG PO BID, TAB 09/13/21 Pantoprazole Sodium (Protonix) 40 Mg Tablet.dr, 40 MG PO DAILY, TAB 09/13/21 Objective Exam Right Hip: Incision C/D/I, spontaneously moves legs, sensation grossly intact to light touch Vital Signs Vital Signs Date Time Temp Pulse Resp B/P (MAP) Pulse Ox O2 Delivery O2 Flow Rate FiO2 12/25/21 03:19 36.6 77 18 168/109 (128) 97 Nasal Cannula 2.00 12/24/21 23:47 37.0 77 20 161/83 (109) 98 Nasal Cannula 2.00 12/24/21 21:58 Nasal Cannula 2.00 12/24/21 21:00 Nasal Cannula 2.00 12/24/21 19:15 36.4 101 18 150/84 (106) 100 Nasal Cannula 2.00 12/24/21 15:27 36.7 88 22 140/70 (93) 94 Nasal Cannula 2.00 12/24/21 12:00 36.8 97 18 152/81 (104) 100 Nasal Cannula 2.00 12/24/21 08:00 Nasal Cannula 3.00 I & O 12/25/21 07:00 Intake Total 0 ml Balance 0 ml Lab Results Laboratory Tests 12/24/21 08:20: White Blood Count 6.5, Red Blood Count 3.27L, Hemoglobin 9.2L, Hematocrit 29L, Mean Corpuscular Volume 88, Mean Corpuscular Hemoglobin 28, Mean Corpuscular Hemoglobin Concent 32, Red Cell Distribution Width 15.5H, Platelet Count 64L, Mean Platelet Volume 11.6, Immature Granulocyte % (Auto) 1, Neutrophils (%) (Auto) 82H, Lymphocytes (%) (Auto) 6L, Monocytes (%) (Auto) 6, Eosinophils (%) (Auto) 5, Basophils (%) (Auto) 0, Neutrophils # (Auto) 5.3, Lymphocytes # (Auto) 0.4L, Monocytes # (Auto) 0.4, Eosinophils # (Auto) 0.3, Basophils # (Auto) 0.0, Immature Granulocyte # (Auto) 0.1, Percent Immature Platelet Fraction 5.4, Sodium Level 136, Potassium Level 4.3, Chloride Level 107, Carbon Dioxide Level 23, Anion Gap 6, Blood Urea Nitrogen 23H, Creatinine 1.32H, Estimat Glomerular Filtration Rate 55, BUN/Creatinine Ratio 17, Glucose Level 105, Calcium Level 8.5 12/25/21 05:05: White Blood Count 5.2, Red Blood Count 3.30L, Hemoglobin 9.2L, Hematocrit 29L, Mean Corpuscular Volume 88, Mean Corpuscular Hemoglobin 28, Mean Corpuscular Hemoglobin Concent 32, Red Cell Distribution Width 15.1H, Platelet Count 73L, Mean Platelet Volume 11.7, Immature Granulocyte % (Auto) 1, Neutrophils (%) (Auto) 77H, Lymphocytes (%) (Auto) 8L, Monocytes (%) (Auto) 7, Eosinophils (%) (Auto) 7, Basophils (%) (Auto) 1, Neutrophils # (Auto) 4.0, Lymphocytes # (Auto) 0.4L, Monocytes # (Auto) 0.4, Eosinophils # (Auto) 0.4H, Basophils # (Auto) 0.0, Immature Granulocyte # (Auto) 0.0, Percent Immature Platelet Fraction 5.4 Microbiology 12/21/21 MRSA Screen - Final, Complete MRSA not isolated Assessment and Plan Assessment Right Femoral Neck Fracture s/p CRPP Problem List Right Femoral Neck Fracture s/p CRPP Plan If not able to progress with therapy efforts and medically stable, okay to transfer back to facility from orthopedic standpoint. Final Diagonsis Right Femoral Neck Fracture s/p CRPP Level of the visit: Level 3 (postop global) ALEXA RECINOS MD Dec 25, 2021 07:54
[2021-12-25 08:00] VITALS: BP 152/84
[2021-12-25] MEDS: RIVAROXABAN 15 MG TABLET (XARELTO) PO SCH (08:18)
[2021-12-25] MEDS: FERROUS SULF 325 MG (IRON) TAB PO SCH ×2 (08:18→16:42)
[2021-12-25] MEDS: MEMANTINE 10 MG (NAMENDA) TABLET PO SCH ×2 (08:18→21:05)
[2021-12-25] MEDS: risperiDONE 0.25 MG (RisperDAL) TAB PO SCH ×2 (08:18→21:05)
[2021-12-25] MEDS: PANTOPRAZOLE 40 MG (PROTONIX) TAB PO SCH (08:24)
[2021-12-25] MEDS: DORZOLAMIDE 2% 10 ML BTL (TRUSOPT) OP SCH (08:25)
[2021-12-25] MEDS: LORATADINE (CLARITIN) 10 MG TAB PO SCH (08:25)
[2021-12-25] MEDS: polyethylene glycoL POWDER 17 GM (MIRALAX) PACK PO SCH (08:25)
[2021-12-25] MEDS: VITAMIN D3 25 MCG (1,000 UNITS) TABLET PO SCH (08:25)
[2021-12-25] MEDS: TRIAMCINOLONE 0.5% CR (KENALOG) 15 GM TUBE TP SCH ×2 (08:27→21:11)
--- NOTE | 2021-12-25 08:48 | Physical Therapy Daily Note ---
PT Daily Note-Current Subjective Patient yells, "Get the fuck out of here." Mental Status Patient Orientation: Confused Transfers SCALE: Activities may be completed with or without assistive devices. 6-Hgglfmecrt-syiupkl completes the activity by him/herself with no assistance from a helper. 5-Set-up or Clean-up Assistance-helper sets up or cleans up; patient completes activity. [place] assists only prior to or following the activity. 4-Supervision or Touching Assistance-helper provides verbal cues and/or touching/steadying and/or contact guard assistance as patient completes activity. Assistance may be provided throughout the activity or intermittently. 3-Partial/Moderate Assistance-helper does LESS THAN HALF the effort. [place] lifts, holds or supports trunk or limbs, but provides less than half the effort. 2-Substantial/Maximal Assistance-helper does MORE THAN HALF the effort. [place] lifts or holds trunk or limbs and provides more than half the effort. 0-Kpmtomkub-jtdidk does ALL the effort. Patient does none of the effort to complete the activity. Or, the assistance of 2 or more helpers is required for the patient to complete the activity. If activity was not attempted, code reason: 7-Patient Refused. 9-Not Applicable-not attempted and the patient did not perform the activity before the current illness, exacerbation or injury. 10-Not Attempted due to Environmental Limitations-(lack of equipment, weather restraints, etc.). 88-Not Attempted due to Medical Conditions or Safety Concerns. Weight Bearing Right Lower Extremity: Right Weight Bearing/Tolerated Left Lower Extremity: Left Full Weight Bearing Exercises Supine Ex: Ankle pumps, Heel Slides, Straight leg raise Supine Reps: 10 (PROM with patient resisting with all mobility) Assessment PT placed gown on patient and patient grabbed PT arms and fingers and tried to bend them back. PT placed warm blanket on patient and patient calmed down. Patient is not safe for OOB activity at this time. 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 [employer]imney Construction Supervisor Goals 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 Time Frame: Jan 05, 2022 Roll Left & Right (QC): 2 Sit to Lying (QC): 2 Lying-Sitting on Side/Bed(QC): 2 Sit to Stand (QC): 2 Chair/Sda-ds-Dfjyo Xfer(QC): 2 PT Plan Treatment/Plan Treatment Plan: Continue Plan of Care Treatment Plan: Bed Mobility, Education, Functional Activity Tammie, Functional Strength, Gait, Safety, Therapeutic Exercise, Transfers Treatment Duration: Dec 24, 2021 Frequency: 6 times per week Estimated Hrs Per Day: .25 hour per day Patient and/or Family Agrees t: Yes Time/GCodes Time In: 725 Time Out: 735 Total Billed Treatment Time: 10 Total Billed Treatment 1 visit EX 10min FRIEDA CARDONA PT Dec 25, 2021 08:48
--- NOTE | 2021-12-25 09:00 | Speech Therapy Progress Note ---
Therapy Progress Note Speech Pathology: Speech pathology attempted a re-evaluation of the patient's oropharyngeal swallowing function at 0852. At this time, the patient does not follow verbal commands, return in and out of a closed eye behavior, and display audible, wet hypopharyngeal secretions. As the patient demonstrates decreased alertness, inability to follow commands, and suspected poor ability to handle his own secretions, the patient is not appropriate or safe for an attempt of P.O. trials. Speech pathology will re-attempt as able and appropriate. SHRUTHI RANDALL Dec 25, 2021 09:00
[2021-12-25] MEDS: 1/2 NS IV SOLUTION 1,000 ML IV SCH ×2 (09:38→21:13)
[2021-12-25 12:00] VITALS: BP 156/62
[2021-12-25 16:00] VITALS: BP 170/80
--- NOTE | 2021-12-25 18:44 | Progress Note - Hospitalist ---
Subjective HPI/CC On Admission Date Seen by Provider: Dec 25, 2021 Time Seen by Provider: 10:35 Patient is an 81-year-old male with past medical history of dementia, depression, atrial fibrillation who presented to the emergency department from [facility] due to a fall. This fall was unwitnessed but the [facility] was concerned about a right hip fracture due to his pain and he was brought into the ER for evaluation. Imaging revealed a subcapital hip fracture and he was admitted to Ortho surgery services for surgical intervention. I am consulted for medical management. I saw him immediately postop and he is quite drwosy still from anethesia. He denies any complaints but mostly sleeps. His daughter provides the history. 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 He has been doing better on Risperdal 0.25mg BID. We discussed the typical course postop and how his dementia will likely worsen in the short term and hope fully will be able to improve. Subjective/Events-last exam He is lethargic but responds to painful stimuli. He follows commands by squeezing hands intermittently. Objective Exam Vital Signs Vital Signs Date Time Temp Pulse Resp B/P (MAP) Pulse Ox O2 Delivery O2 Flow Rate FiO2 12/25/21 16:00 35.7 77 20 170/80 (110) 97 Nasal Cannula 2.00 12/21/21 19:43 21 Capillary Refill : Less Than 3 SecondsLess Than 3 Seconds General Appearance: No Apparent Distress, Chronically ill, Thin Respiratory: Lungs Clear, No Respiratory Distress Cardiovascular: No Murmur, Irregularly Irregular Gastrointestinal: Normal Bowel Sounds, Soft Extremity: Normal Inspection, No Pedal Edema Neurologic/Psychiatric: Motor Weakness, Other (lethargic, decreased responsiveness) Skin: Normal Color, Warm/Dry Results/Procedures Lab Laboratory Tests 12/25/21 05:05 Patient resulted labs reviewed. Imaging: Reviewed Imaging Report Assessment/Plan Assessment and Plan Assess & Plan/Chief Complaint Right subcapital hip fracture Management per Ortho Underwent reduction and pinning on 12/22 Pain regimen Bowel regimen PT/OT Poor prognosis Goals of care discussion Palliative care consult Discussed poor prognosis with daughter Per daughter, change code status to DNR Will consider hospice if fails to improve Does not want to pursue feeding tube Dysphagia NPO Speech following A-fib Chronic and persistent- failed ablation Rate controlled Continue Xarelto Thrombocytopenia Stable Hematology following Dementia Delirium Anxiety Depression Continue home meds Will not resume Rexulti DVT prophylaxis: already receiving therapeutic anticoagulation Diagnosis/Problems Diagnosis/Problems (1) Hip fracture, right Status: Acute (2) Dementia Status: Acute (3) Thrombocytopenia Status: Acute (4) Delirium Status: Acute ADRIANA SEO MD Dec 25, 2021 18:44
[2021-12-25 20:00] VITALS: BP 200/82
[2021-12-25] MEDS: SERTRALINE 100 MG (ZOLOFT) TAB PO SCH (21:05)
[2021-12-25] MEDS: traZODone 50 MG (DESYREL) TAB PO SCH (21:05)
[2021-12-25] MEDS: LATANOPROST 0.005% (XALATAN) OPHTH SOLN 2.5 ML OU SCH (21:10)
[2021-12-26] VITALS (7 sets, daily range): BP systolic 130–187; BP diastolic 60–130
[2021-12-26] MEDS ORDERED: hydrALAZINE (APESOLINE) 20 MG/ML VIAL IV PRN (07:30)
[2021-12-26] MEDS ORDERED: amLODIPine 10 MG (NORVASC) TAB PO SCH (09:00)
--- NOTE | 2021-12-26 09:39 | Progress Note ---
Progress Note Assessment/Plan Date Seen by Provider: Dec 26, 2021 Time Seen by Provider: 09:33 Events since last exam Plt was up to 73 yesterday. WBC normal 5, Hb 9.2 stable. Pt is DNR Possible going to hospice if no improvement. Assessment/Plan IMP: 1. Pancytopenia WBC 3.8, Hb 9.9 and Plt 101 at ER, ? etiology. According to her daughter, pt had blood counts issue 06/2022 with Hb 7.5. I think he might have early MDS before the hip fracture. He is not able to make sufficient Plt to compensate the need of the surgery, less likely ITP. Also recently change of his psychotic medication. 2. 81 year old male with right hip [facility]s/p surgical intervention 12/22/2021 3. h/o aFib on Xarelto, dose reduced at 15mg daily. 4. Dementia. 5. Acute on chronic renal insufficiency. Rec: 1. Continue watch his blood counts for now. 2. Stay on Xarelto at 15mg daily for now. 3. If he recovers from the fracture and his blood counts are still not recovered in 2-3 months, then consider work up possible bone marrow exam as out-pt. 4. Agree with possible hospice if no improvement. Vitals Last set of Vitals Signs Vital Signs Date Time Temp Pulse Resp B/P (MAP) Pulse Ox O2 Delivery O2 Flow Rate FiO2 12/26/21 08:00 37.0 78 18 172/130 (144) 98 Nasal Cannula 2.00 12/21/21 19:43 21 I&O I&O Intake and Output 12/26/21 00:00 Intake Total 0 ml Balance 0 ml Intake Oral 0 ml # Voids 9 Labs Microbiology 12/21/21 MRSA Screen - Final, Complete MRSA not isolated LORENE HERNANDEZ MD Dec 26, 2021 09:39
[2021-12-26] MEDS: LORATADINE (CLARITIN) 10 MG TAB PO SCH (09:52)
[2021-12-26] MEDS: MEMANTINE 10 MG (NAMENDA) TABLET PO SCH (09:52)
[2021-12-26] MEDS: DORZOLAMIDE 2% 10 ML BTL (TRUSOPT) OP SCH (09:52)
[2021-12-26] MEDS: polyethylene glycoL POWDER 17 GM (MIRALAX) PACK PO SCH (09:52)
[2021-12-26] MEDS: FERROUS SULF 325 MG (IRON) TAB PO SCH ×2 (09:52→16:47)
[2021-12-26] MEDS: risperiDONE 0.25 MG (RisperDAL) TAB PO SCH (09:53)
[2021-12-26] MEDS: TRIAMCINOLONE 0.5% CR (KENALOG) 15 GM TUBE TP SCH (09:53)
[2021-12-26] MEDS: RIVAROXABAN 15 MG TABLET (XARELTO) PO SCH (09:53)
[2021-12-26] MEDS: PANTOPRAZOLE 40 MG (PROTONIX) TAB PO SCH (09:53)
[2021-12-26] MEDS: VITAMIN D3 25 MCG (1,000 UNITS) TABLET PO SCH (09:53)
[2021-12-26 09:55] LABS: BASOPHILS % (AUTO) 1 % (0-10); EOSINOPHILS # (AUTO) 0.2 10^3/uL (0.0-0.3); EOSINOPHILS % (AUTO) 4 % (0-10); HEMATOCRIT 27 % (40-54); LYMPHOCYTES # (AUTO) 0.4 10^3/uL (1.0-4.0); LYMPHOCYTES % (AUTO) 7 % (12-44); MEAN CORPUSCULAR HEMOGLOBIN 29 pg (25-34); MEAN CORPUSCULAR HGB CONC 33 g/dL (32-36); MEAN CORPUSCULAR VOLUME 87 fL (80-99); MEAN PLATELET VOLUME 11.3 fL (9.0-12.2); MONOCYTES # (AUTO) 0.4 10^3/uL (0.0-1.0); MONOCYTES % (AUTO) 8 % (0-12); NEUTROPHILS # (AUTO) 4.3 10^3/uL (1.8-7.8); NEUTROPHILS % (AUTO) 80 % (42-75); PLATELET COUNT 97 10^3/uL (130-400); WHITE BLOOD COUNT 5.4 10^3/uL (4.3-11.0)
--- NOTE | 2021-12-26 10:07 | Progress Note - Ortho ---
Progress Note Subjective Date of Exam 12/26/21 Chief Complaint POD #4 CRPP of R FN Fx HPI/Events since last exam Not progressing, events noted Review of Systems - Allergies: Coded Allergies: No Known Drug Allergies (Unverified , 12/21/21) Home Meds Reported Medications Ondansetron (Ondansetron Odt) 4 Mg Tab.rapdis, 4 MG PO Q6H PRN for NAUSEA/VOMITING, TAB 12/24/21 Melatonin/Pyridoxine HCl (B6) (Melatonin 3 mg Tablet) 1 Each Tablet, 1 EACH PO HS PRN for SLEEP, TAB 12/24/21 Acetaminophen (Tylenol) 325 Mg Tablet, 650 MG PO TID PRN for PAIN-MILD (1-4), TAB TAKES 2 (325MG) TAB 12/21/21 Alprazolam (Xanax) 0.25 Mg Tablet, 0.25 MG PO Q6H PRN for AGITATION, TAB 12/21/21 Risperidone (Risperidone) 0.25 Mg Tablet, 0.25 MG PO BID, TAB 12/21/21 Trazodone HCl (Trazodone HCl) 50 Mg Tablet, 50 MG PO HS, TAB 12/21/21 Polyethylene Glycol 3350 (Miralax) 17 Gm Powd.pack, 17 GM PO PRN, EACH 09/13/21 Cholecalciferol (Vitamin D3) (Vitamin D3) 25 Mcg Capsule, 50 MCG PO DAILY, CAP TAKES 2 (25MCG) TAB 09/13/21 Loratadine (Claritin) 10 Mg Capsule, 10 MG PO DAILY, CAP 09/13/21 Sertraline HCl (Zoloft) 100 Mg Tablet, 100 MG PO HS, TAB 09/13/21 Memantine HCl (Namenda) 10 Mg Tablet, 10 MG PO BID, TAB 09/13/21 Dorzolamide HCl/Pf (Dorzolamide 2% Eye Drop) 10 Ml Drops, 1 DROP OP DAILY, DROPS 09/13/21 Latanoprost/Pf (Latanoprost 0.005% Eye Drop) 7.5 Ml Drops, 1 DROP OP HS, DROPS 09/13/21 Rivaroxaban (Xarelto) 15 Mg Tablet, 15 MG PO DAILY, TAB 09/13/21 Triamcinolone Acetonide (Triamcinolone Acetonide 0.5% Cream) 15 Gm Cream..g., 1 APPLIC TP BID, EA 09/13/21 Hydrocodone Bit/Acetaminophen (HYDROcodone/APAP 5 MG/325 MG TAB) 1 Tab Tab, 0.5 TAB PO Q6H PRN for PAIN-SEE DOSE INSTRUCTIONS, TAB 09/13/21 Polyethylene Glycol 3350 (Miralax) 17 Gm Powd.pack, 17 GM PO DAILY, EACH 09/13/21 Ferrous Sulfate (Ferosul) 325 Mg Tablet, 325 MG PO BID, TAB 09/13/21 Pantoprazole Sodium (Protonix) 40 Mg Tablet.dr, 40 MG PO DAILY, TAB 09/13/21 Objective Exam R Hip: Dressing C/D/I, no s/s of DVT, spontaneously moves extremity Vital Signs Vital Signs Date Time Temp Pulse Resp B/P (MAP) Pulse Ox O2 Delivery O2 Flow Rate FiO2 12/26/21 09:53 147/65 (92) 12/26/21 08:00 Nasal Cannula 2.00 12/26/21 08:00 37.0 78 18 172/130 (144) 98 Nasal Cannula 2.00 12/26/21 04:02 37.3 71 20 187/108 (134) 100 Nasal Cannula 2.00 12/26/21 00:19 37.7 119 22 181/94 (123) 100 Nasal Cannula 2.00 12/25/21 22:54 Nasal Cannula 2.00 12/25/21 20:00 36.4 112 22 200/82 (121) 100 Nasal Cannula 2.00 12/25/21 20:00 Nasal Cannula 2.00 12/25/21 16:00 35.7 77 20 170/80 (110) 97 Nasal Cannula 2.00 12/25/21 12:00 35.6 87 20 156/62 (93) 93 Nasal Cannula I & O 12/26/21 07:00 Intake Total 0 ml Balance 0 ml Lab Results Laboratory Tests 12/26/21 09:44: White Blood Count 5.4, Red Blood Count 3.14L, Hemoglobin 9.0L, Hematocrit 27L, Mean Corpuscular Volume 87, Mean Corpuscular Hemoglobin 29, Mean Corpuscular Hemoglobin Concent 33, Red Cell Distribution Width 14.9H, Platelet Count 97L, Mean Platelet Volume 11.3, Immature Granulocyte % (Auto) 0, Neutrophils (%) (Auto) 80H, Lymphocytes (%) (Auto) 7L, Monocytes (%) (Auto) 8, Eosinophils (%) (Auto) 4, Basophils (%) (Auto) 1, Neutrophils # (Auto) 4.3, Lymphocytes # (Auto) 0.4L, Monocytes # (Auto) 0.4, Eosinophils # (Auto) 0.2, Basophils # (Auto) 0.0, Immature Granulocyte # (Auto) 0.0, Percent Immature Platelet Fraction 4.9 Microbiology 12/21/21 MRSA Screen - Final, Complete MRSA not isolated Assessment and Plan Assessment Right Femoral Neck Fracture s/p CRPP Problem List Right Femoral Neck Fracture s/p CRPP Plan Hospitalist service has accepted transfer to their service; discussed with Dr. Mansfield Final Diagonsis Right Femoral Neck Fracture s/p CRPP Level of the visit: Level 3 (global) ALEXA RECINOS MD Dec 26, 2021 10:07
[2021-12-26 10:19] LABS: CALCIUM 8.5 MG/DL (8.5-10.1); CREATININE SERUM 1.11 MG/DL (0.60-1.30); POTASSIUM 4.3 MMOL/L (3.6-5.0)
--- NOTE | 2021-12-26 10:27 | Physical Therapy Daily Note ---
PT Daily Note-Current Subjective Patient in bed pre tx, doesn't communicate, does respond to painful stimuli (PROM of right LE) Appearance Patient in bed post tx with nurse call, phone, tray, all needs met, bed alarm on, family in room. Mental Status Patient Orientation: Confused, Unable to Assess, Non-Verbal/Aphasic Attachments: SCD's Transfers SCALE: Activities may be completed with or without assistive devices. 8-Waknesjqsw-xgosnva completes the activity by him/herself with no assistance from a helper. 5-Set-up or Clean-up Assistance-helper sets up or cleans up; patient completes activity. [place] assists only prior to or following the activity. 4-Supervision or Touching Assistance-helper provides verbal cues and/or touching/steadying and/or contact guard assistance as patient completes activity. Assistance may be provided throughout the activity or intermittently. 3-Partial/Moderate Assistance-helper does LESS THAN HALF the effort. [place] lifts, holds or supports trunk or limbs, but provides less than half the effort. 2-Substantial/Maximal Assistance-helper does MORE THAN HALF the effort. [place] lifts or holds trunk or limbs and provides more than half the effort. 3-Bdcexywmv-jsxfpd does ALL the effort. Patient does none of the effort to complete the activity. Or, the assistance of 2 or more helpers is required for the patient to complete the activity. If activity was not attempted, code reason: 7-Patient Refused. 9-Not Applicable-not attempted and the patient did not perform the activity before the current illness, exacerbation or injury. 10-Not Attempted due to Environmental Limitations-(lack of equipment, weather restraints, etc.). 88-Not Attempted due to Medical Conditions or Safety Concerns. Weight Bearing Right Lower Extremity: Right Weight Bearing/Tolerated Left Lower Extremity: Left Full Weight Bearing Exercises PROM of RLE, AP, HS, SAQ, SLR hip abd/add, x15 each. Treatments PROM RLE Assessment Current Status: Poor Progress Patient resists all PROM, barely any movement gets achieved. Patient moans during tx but doesn't look or talk to therapist, doesn't even open his eyes. PT Family Support Specialist Goals [facility] Goals PT Mcfp Goals Time Frame: Jan 05, 2022 Roll Left & Right (QC): 2 Sit to Lying (QC): 2 Lying-Sitting on Side/Bed(QC): 2 Sit to Stand (QC): 2 Chair/Nyv-jz-Nznwt Xfer(QC): 2 PT Plan Problem List Problem List: Activity Tolerance, Functional Strength, Safety, Balance, Gait, Transfer, Bed Mobility, ROM Treatment/Plan Treatment Plan: Continue Plan of Care Treatment Plan: Bed Mobility, Education, Functional Activity Tammie, Functional Strength, Gait, Safety, Therapeutic Exercise, Transfers Treatment Duration: Dec 24, 2021 Frequency: 6 times per week Estimated Hrs Per Day: .25 hour per day Patient and/or Family Agrees t: Yes Safety Risks/Education Patient Education: Correct Positioning, Safety Issues Teaching Recipient: Patient Teaching Methods: Demonstration, Discussion Response to Teaching: Reinforcement Needed Time/GCodes Time In: 1014 Time Out: 1022 Total Billed Treatment Time: 8 Total Billed Treatment 1 visit EX 8' IBIS BERGERON PT Dec 26, 2021 10:27
[2021-12-26 10:54] LABS: BAND NEUTROPHILS 0 %; BASOPHILS % (MANUAL) 0 %; EOSINOPHILS % (MANUAL) 4 %; LYMPHOCYTES % (MANUAL) 3 %; MONOCYTES % (MANUAL) 6 %; NEUTROPHILS % (MANUAL) 87 %
[2021-12-26 10:55] LABS: ACANTHOCYTES MODERATE
--- NOTE | 2021-12-26 11:00 | Physical Therapy Daily Note ---
PT Daily Note-Current Subjective Patient in bed pre tx, agrees to PT, has unrated pain in both shoulders. Appearance Patient in recliner post tx with nurse call, phone, tray, chair alarm on, family in room. Mental Status Patient Orientation: Person, Confused Attachments: IV Transfers SCALE: Activities may be completed with or without assistive devices. 3-Ivtztkxduo-cldzrtg completes the activity by him/herself with no assistance from a helper. 5-Set-up or Clean-up Assistance-helper sets up or cleans up; patient completes activity. [place] assists only prior to or following the activity. 4-Supervision or Touching Assistance-helper provides verbal cues and/or touching/steadying and/or contact guard assistance as patient completes activity . Assistance may be provided throughout the activity or intermittently. 3-Partial/Moderate Assistance-helper does LESS THAN HALF the effort. [place] lifts, holds or supports trunk or limbs, but provides less than half the effort. 2-Substantial/Maximal Assistance-helper does MORE THAN HALF the effort. [place] lifts or holds trunk or limbs and provides more than half the effort. 3-Wojxibjrk-tmbbsp does ALL the effort. Patient does none of the effort to complete the activity. Or, the assistance of 2 or more helpers is required for the patient to complete the activity. If activity was not attempted, code reason: 7-Patient Refused. 9-Not Applicable-not attempted and the patient did not perform the activity before the current illness, exacerbation or injury. 10-Not Attempted due to Environmental Limitations-(lack of equipment, weather restraints, etc.). 88-Not Attempted due to Medical Conditions or Safety Concerns. Roll Left & Right (QC): 2 Lying to Sitting/Side of Bed(Q: 2 Sit to Stand (QC): 2 Chair/Wyb-kr-Yvhpq Xfer(QC): 2 Max assist for transfers and supine to sit, needs assist with sitting balance. He did participate a little during the transfer and was able to bear a little weight through both legs. Weight Bearing Right Lower Extremity: Right Weight Bearing/Tolerated Left Lower Extremity: Left Full Weight Bearing Exercises Seated Therapy Exercises: Ankle pumps (RLE only), Long arc quads (PROM on LLE) Seated Reps: 10 Treatments bed mobility and transfers, LE strengthening and ROM Assessment Current Status: Fair Progress slightly improved transfers from yesterday PT Parking Meter Mechanic Goals [facility] Goals PT Parking Meter Mechanic Goals Time Frame: Jan 05, 2022 Roll Left & Right (QC): 2 Sit to Lying (QC): 2 Lying-Sitting on Side/Bed(QC): 2 Sit to Stand (QC): 2 Chair/Mxb-er-Ogstx Xfer(QC): 2 PT Plan Problem List Problem List: Activity Tolerance, Functional Strength, Safety, Balance, Gait, Transfer, Bed Mobility, ROM Treatment/Plan Treatment Plan: Continue Plan of Care Treatment Plan: Bed Mobility, Education, Functional Activity Tammie, Functional Strength, Gait, Safety, Therapeutic Exercise, Transfers Treatment Duration: Dec 24, 2021 Frequency: 6 times per week Estimated Hrs Per Day: .25 hour per day Patient and/or Family Agrees t: Yes Safety Risks/Education Patient Education: Transfer Techniques, Correct Positioning, Safety Issues Teaching Recipient: Patient Teaching Methods: Demonstration, Discussion Response to Teaching: Reinforcement Needed Time/GCodes Time In: 1030 Time Out: 1041 Total Billed Treatment Time: 11 Total Billed Treatment 1 visit FA 11IBIS PULLIAM PT Dec 26, 2021 11:00
[2021-12-26] MEDS: 1/2 NS IV SOLUTION 1,000 ML IV SCH (11:17)
--- NOTE | 2021-12-26 12:14 | Speech Therapy Progress Note ---
Therapy Progress Note Speech Pathology: Speech pathology attempted a re-evaluation of the swallowing function at 0945 and 1153. Throughout the attempts, the patient remains at a reduced alertness level and inappropriate/safe for P.O. trials. Per patient's daughter, the family is requesting a transfer of care to [facility]. Speech pathology will continue to monitor the patient for increased alertness pending discharge. SHRUTHI RANDALL Dec 26, 2021 12:14
--- NOTE | 2021-12-26 17:44 | Discharge Summary ---
Discharge Summary Hospital Course Problems/Dx: (1) Hip fracture, right Status: Acute (2) Dementia Status: Acute (3) Thrombocytopenia Status: Acute (4) Delirium Status: Acute (5) Dysphagia Status: Acute Hospital Course Date of Admission: Dec 21, 2021 at 16:55 Admission Diagnosis : Hip fracture Family Physician/Provider: Cade Lara MD Date of Discharge: 12/26/21 Discharge Diagnosis: Hip fracture, delirium Hospital Course: Rob Gilliland is an 81 year old male with dementia, anxiety, depression, who was admitted with hip fracture. Orthopedic surgery performed surgical repair on 12/22. His course was complicated by post-operative anemia which stabilized without transfusion. He also had thrombocytopenia which improved. Hematology was consulted and planned to follow up outpatient. He also had post-operative delirium on chronic dementia. He had a CT head with no acute abnormalities. He also had dysphagia and was NPO per speech therapy recommendations. He was transferred to [facility] for possible neurology evaluation. Labs and Pending Lab Test: Laboratory Tests 12/26/21 09:44: White Blood Count 5.4, Red Blood Count 3.14L, Hemoglobin 9.0L, Hematocrit 27L, Mean Corpuscular Volume 87, Mean Corpuscular Hemoglobin 29, Mean Corpuscular Hemoglobin Concent 33, Red Cell Distribution Width 14.9H, Platelet Count 97L, Mean Platelet Volume 11.3, Immature Granulocyte % (Auto) 0, Neutrophils (%) (Auto) 80H, Lymphocytes (%) (Auto) 7L, Monocytes (%) (Auto) 8, Eosinophils (%) (Auto) 4, Basophils (%) (Auto) 1, Neutrophils # (Auto) 4.3, Lymphocytes # (Auto) 0.4L, Monocytes # (Auto) 0.4, Eosinophils # (Auto) 0.2, Basophils # (Auto) 0.0, Immature Granulocyte # (Auto) 0.0, Neutrophils % (Manual) 87, Lymphocytes % (Manual) 3, Monocytes % (Manual) 6, Eosinophils % (Manual) 4, Basophils % (Manual) 0, Band Neutrophils 0, Percent Immature Platelet Fraction 4.9, Acanthocytes MODERATE, Sodium Level 138, Potassium Level 4.3, Chloride Level 106, Carbon Dioxide Level 20L, Anion Gap 12, Blood Urea Nitrogen 19H, Creatinine 1.11, Estimat Glomerular Filtration Rate 67, BUN/Creatinine Ratio 17, Glucose Level 94, Calcium Level 8.5 Microbiology 12/21/21 MRSA Screen - Final, Complete MRSA not isolated Home Meds Active Reported Ondansetron Odt (Ondansetron) 4 Mg Tab.rapdis 4 Mg PO Q6H PRN Melatonin 3 mg Tablet (Melatonin/Pyridoxine HCl (B6)) 1 Each Tablet 1 Each PO HS PRN Tylenol (Acetaminophen) 325 Mg Tablet 650 Mg PO TID PRN TAKES 2 (325MG) TAB Xanax (Alprazolam) 0.25 Mg Tablet 0.25 Mg PO Q6H PRN Risperidone 0.25 Mg Tablet 0.25 Mg PO BID Trazodone HCl 50 Mg Tablet 50 Mg PO HS Miralax (Polyethylene Glycol 3350) 17 Gm Powd.pack 17 Gm PO PRN Vitamin D3 (Cholecalciferol (Vitamin D3)) 25 Mcg Capsule 50 Mcg PO DAILY TAKES 2 (25MCG) TAB Claritin (Loratadine) 10 Mg Capsule 10 Mg PO DAILY Zoloft (Sertraline HCl) 100 Mg Tablet 100 Mg PO HS Namenda (Memantine HCl) 10 Mg Tablet 10 Mg PO BID Dorzolamide 2% Eye Drop (Dorzolamide HCl/Pf) 10 Ml Drops 1 Drop OP DAILY Latanoprost 0.005% Eye Drop (Latanoprost/Pf) 7.5 Ml Drops 1 Drop OP HS Xarelto (Rivaroxaban) 15 Mg Tablet 15 Mg PO DAILY Triamcinolone Acetonide 0.5% Cream (Triamcinolone Acetonide) 15 Gm Cream..g. 1 Applic TP BID HYDROcodone/APAP 5 MG/325 MG TAB (Acetaminophen/Hydrocodone Bitart) 1 Tab Tab 0.5 Tab PO Q6H PRN Miralax (Polyethylene Glycol 3350) 17 Gm Powd.pack 17 Gm PO DAILY Ferosul (Ferrous Sulfate) 325 Mg Tablet 325 Mg PO BID Protonix (Pantoprazole Sodium) 40 Mg Tablet.dr 40 Mg PO DAILY Assessment/Pt Instructions Patient transferred to [facility] Discharge Planning: >30 minutes discharge planning Discharge Instructions Discharge Diet: Other Diet (NPO) Activity as Tolerated: Yes Consultations Orthopedic surgery Discharge Physical Examination Vital Signs Vital Signs Date Time Temp Pulse Resp B/P (MAP) Pulse Ox O2 Delivery O2 Flow Rate FiO2 12/26/21 17:31 Nasal Cannula 2.00 12/26/21 16:00 35.8 76 20 130/60 (83) 98 12/21/21 19:43 21 General Appearance: No Apparent Distress, Chronically ill, Thin Respiratory: Lungs Clear, No Respiratory Distress Cardiovascular: Regular Rate, Rhythm, No Murmur Gastrointestinal: Normal Bowel Sounds, Soft Extremity: Normal Inspection, No Pedal Edema Skin: Normal Color, Warm/Dry Neurologic/Psychiatric: Disoriented, Motor Weakness Allergies: Coded Allergies: No Known Drug Allergies (Unverified , 12/21/21) Discharge Summary Date of Admission Dec 21, 2021 at 16:55 Date of Discharge Discharge Date: Dec 26, 2021 Discharge Time: 17:38 Admission Diagnosis Hip fracture Consults/Procedures Consulations Orthopedic surgery Procedures Closed reduction/pinning Comfort Measures/ End of Life Care: Pallative Care Discharge Diagnosis Right subcapital hip fracture Poor prognosis Goals of care discussion Dysphagia A-fib Thrombocytopenia Dementia Delirium Anxiety Depression (1) Hip fracture, right Status: Acute (2) Dementia Status: Acute (3) Thrombocytopenia Status: Acute (4) Delirium Status: Acute ADRIANA SEO MD Dec 26, 2021 17:38
== END 2021-12-26 18:10 | disposition short-term general hospital (02) | DRG 481 ==
LOC: EDUNIT# 15:14 → ER 15:14 → 4TH 16:55
PROVIDERS: ADMIT Orthopaedic Surgery; ATTEND Internal Medicine
PROC: 8E0ZXY6 Isolation (ICD-10-PCS; 2021-12-21)
PROC: 0QS634Z Reposition Right Upper Femur with Internal Fixation Device, Percutaneous Approach (ICD-10-PCS; principal; 2021-12-22 07:35)
DX: S72.011A Unspecified intracapsular fracture of right femur, initial encounter for closed fracture (principal); D61.818 Other pancytopenia; I48.19 Other persistent atrial fibrillation; F05 Delirium due to known physiological condition; Z79.01 Long term (current) use of anticoagulants; F01.50 Vascular dementia, unspecified severity, without behavioral disturbance, psychotic disturbance, mood disturbance, and anxiety; R13.10 Dysphagia, unspecified; N18.9 Chronic kidney disease, unspecified; Z66 Do not resuscitate; N28.9 Disorder of kidney and ureter, unspecified; F32.A Depression, unspecified; D64.9 Anemia, unspecified; K21.9 Gastro-esophageal reflux disease without esophagitis; F41.9 Anxiety disorder, unspecified; W19.XXXA Unspecified fall, initial encounter; Y92.099 Unspecified place in other non-institutional residence as the place of occurrence of the external cause
CPT/HCPCS: 36415; 51702; 70450; 72125; 73030; 73562; 76000; 80048; 80053; 81000; 85007; 85025; 85027; 85045; 85055; 85610; 87081; 94760; 96374; C1713